=== PATIENT | male | born 2005 | race Caucasian/White ===

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

== ENCOUNTER 2023-04-28 09:23 | Emergency (ER) | payer OTHER, SELFPAY ==
[2023-04-28 09:31] VITALS: BP 128/69; PULSE 101; RESP 16; TEMP 36.7; O2SAT 100
--- NOTE | 2023-04-28 09:43 | ED.URI ---
HPI - URI/Sore Throat General Chief Complaint: Upper Respiratory Infection Stated Complaint: Sore Throat/Runny Nose Time Seen by Provider: 04/28/23 09:43 Source: patient Mode of arrival: ambulatory Limitations: no limitations History of Present Illness HPI Narrative: 17-year-old male presents with complaint of fatigue, body aches, cough, chest pain, sore throat, headaches for 4 days. Patient seen at another urgent care 2 days ago and states all test were negative and given doxycycline. He states not feeling any better. Denies nausea vomiting diarrhea. No chest pain or shortness of breath. All systems reviewed and negative except as noted above. Related Data Home Medications Medication Instructions Recorded Confirmed doxycycline hyclate 100 mg capsule mg 04/28/23 Allergies Allergy/AdvReac Type Severity Reaction Status Date / Time amoxicillin Allergy Severe Throat Verified 12/20/22 19:11 swelling and rash sulfamethoxazole Allergy Unknown convulsions Verified 12/20/22 19:11 trimethoprim Allergy Unknown convulsions Verified 12/20/22 19:11 Review of Systems Review of Systems: CONSTITUTIONAL: Reports fever, chills, or sweats. EYES: Denies visual changes, redness, or discharge. ENT: Reports rhinorrhea, congestion, sore throat. Denies otalgia. CARDIOVASCULAR: Denies chest pain, palpitations, or edema. RESPIRATORY: Reports cough. Denies dyspnea. GASTROINTESTINAL: Denies abdominal pain, nausea, vomiting, or diarrhea. GENITOURINARY: Denies dysuria or hematuria. SKIN: Denies rash or itching. MUSCULOSKELETAL: Denies back pain, joint pain, or myalgia. NEUROLOGIC: Denies headache, numbness, or weakness. PSYCHIATRIC: Denies anxiety or depression. All other systems reviewed are negative, except as documented in HPI. PMFSH Past Medical History Medical History (Updated 04/28/23 @ 09:50 by Suzanne Shepherd NP) Acne Eczema Social History Social History (Updated 04/26/19 @ 11:20 by Polina Fernandez NP) Smoking status: Never smoker Living arrangements: with family Occupation/Education: student Gender identity (if verbalized by the patient): Male Comments At time of signature, agree with nursing past medical, surgical, social and family history. There is no relevant family history pertinent to the presenting complaint. Exam Narrative: GENERAL: This is a well-nourished, well-developed patient, in no apparent distress. HEAD: normocephalic, atraumatic. EYES: PERRL. Sclera clear/white. Vision is grossly intact. EARS: External ears normal, auditory canals clear and without drainage, TMs normal without perforation. Hearing grossly intact. NOSE: External nose normal with clear nasal drainage, mild congestion. THROAT: Mucous membranes moist, posterior pharynx clear. NECK: Neck supple, non-tender without lymphadenopathy, masses or thyromegaly. CARDIOVASCULAR: Regular rate and rhythm without murmurs, gallops, or rubs. RESPIRATORY: Clear to auscultation. Breath sounds equal bilaterally. No wheezes, rales, or rhonchi. SKIN: warm, Dry, intact with no suspicious lesions or rash, good texture and turgor. NEURO: awake, alert, and oriented to person, place and time. There were no obvious focal neurologic abnormalities. EXTREMITIES: No joint tenderness, effusion, or edema noted. Course Course Level of Care: Express Care Visit Vital Signs Vital signs: Vital Signs Temperature 36.7 C 04/28/23 09:31 Pulse Rate 101 H 04/28/23 09:31 Respiratory Rate 16 04/28/23 09:31 Blood Pressure 128/69 04/28/23 09:31 Pulse Oximetry 100 04/28/23 09:31 Oxygen Delivery Room Air 04/28/23 09:31 Temperature 36.7 C 04/28/23 09:31 Pulse Rate 101 H 04/28/23 09:31 Respiratory Rate 16 04/28/23 09:31 Blood Pressure 128/69 04/28/23 09:31 Pulse Oximetry 100 04/28/23 09:31 Oxygen Delivery Room Air 04/28/23 09:31 Reviewed MDM - URI/Sore Throat MDM Narrative Medical decisio
== END 2023-04-28 09:54 | disposition home or self-care (01) ==
PROVIDERS: Emergency Provider Nurse Practitioner Family
DX: J10.1 Influenza due to other identified influenza virus with other respiratory manifestations (principal); Z20.822 Contact with and (suspected) exposure to COVID-19
CPT/HCPCS: 87426; 87804; 99213; G0463

== ENCOUNTER 2024-07-28 13:20 | Observation (INO) | payer OTHER, SELFPAY ==
--- NOTE | ~2024-07-28 | CT_ITS ---
EXAMINATION: CT abdomen pelvis w con DATE: 07/28/2024 15:41 INDICATION: RIGHT ABDOMINAL PAIN TECHNIQUE: Computed tomography (CT) of the abdomen and pelvis was performed with 100 mL Omnipaque-350 intravenous contrast. Automated exposure control and iterative reconstruction technique were employe d. The dose-length product was 377.13 mGy-cm. COMPARISON: None. FINDINGS: Lower thorax: Unremarkable Liver: Enlarged. Periportal edema. Enlarged lymph node at the enriqueta hepatis. Biliary/Gallbladder: Cholelithiasis. No inflammatory changes No bile duct dilation. Pancreas: No mass or duct dilation. Spleen: Enlarged. Adrenals:No mass. Kidneys: No suspicious mass, obstructing stone, or hydronephrosis. GI tract: Mild distal esophageal and gastric wall edema. No small or large bowel dilation. Normal naseem endix. Mesentery/Peritoneum: No ascites, mass, or free air. Retroperitoneum: No mass. Pelvis: Pelvic organs are within normal limits. Soft Tissues: Soft tissues and body wall unremarkable. Bones: No acute osseous finding. IMPRESSION: Mild esophagitis/gastritis. Hepatosplenomegaly. Periportal edema. Enriqueta hepatis lymphadenopathy. Consider acute hepatitis in the differential. Correlate with liver labs and any history of trauma, or progressive fluid resuscitation . Other causes of portal edema such as CHF, cholangitis and pyelonephritis are considered less likely in a patient of this age and given the lack of associated CT abnormalities. Cholelithiasis, without CT evidence of cholecystitis. Reviewed, dictated and finalized at [facility]. IMPRESSION: Mild esophagitis/gastritis. Hepatosplenomegaly. Periportal edema. Enriqueta hepatis lymphadenopathy. Consider a cute hepatitis in the differential. Correlate with liver labs and any history o f trauma, or progressive fluid resuscitation. Other causes of portal edema such as CHF, cholangitis and pyelonephritis are considered less likely in a patient of this age and given the lack of associated CT abnormalities. Cholelithiasis, without CT evidence of cholecystitis.
--- NOTE | ~2024-07-28 | US_ITS ---
EXAMINATION: US abdomen limited DATE: 07/28/2024 18:44 INDICATION: GALLBLADDER PATHOLOGY TECHNIQUE: Multiple grayscale and Doppler ultrasound images of limited portions of the abdomen were o btained. COMPARISON: CT abdomen and pelvis, same date. FINDINGS: The visualized portions of the pancreas are normal. The liver is enlarged with normal echog enicity and echotexture. Periportal hyperechogenicity. No surface nodularity. Normal hepatopetal flow in the main portal vein. Multiple mobile echogenic intraluminal foci. Gallbladder wall measures 3 mm . No pericholecystic fluid. The common bile duct measures 5 mm. There was no sonographic Acharya sign, however this may be confounded by concurrent pain medications. IMPRESSION: Hepatomegaly. Cholelithiasis. Mild gallbladder wall thickening. No pericholecystic fluid or common bile duct dilati on. Negative sonographic Acharya sign although this may be confounded by current pain medication use. Periportal hyperechogenicity, as can be seen with cholecystitis and inflammatory bowel disease. No CT findings of pneumobilia or recurrent pyogenic cholangitis which can also cause this finding. Conside r schistosomiasis if there has been travel to endemic regions. Reviewed, dictated and finalized at location K. IMPRESSION: Hepatomegaly. Cholelithiasis. Mild gallbladder wall thickening. No pericholecystic fluid or c ommon bile duct dilation. Negative sonographic Acharya sign although this may be confounded by current pain medication use. Periportal hyperechogenicity, as can be seen with cholecystitis and inflammator y bowel disease. No CT findings of pneumobilia or recurrent pyogenic cholangiti s which can also cause this finding. Consider schistosomiasis if there has been travel to endemic regions.
--- OUTSIDE RECORDS SUMMARY | 2024-07-28 13:22 | XMS_ITS | Clinical Summary ---
Author Organization [facility] [employer] Address [address] [place] [address] Care Team Providers Care Loom Technician Name Role Phone Jackson Boothe MD Primary Care Provider [phone] Source Comments [facility] [employer],non-owned Affiliates and Associated Physician Practices is amultiple site organization consisting of ambulatory clinics and hospital sitesin [place], [place], [place] and [place]. This disclosure is being madepursuant to the Care Everywhere program and may not contain all information available regarding this patient. Last updated 17.[facility] [employer] Allergies No known active allergies Medications * Be aware that medications may not be up to date on this document. Alwaysverify current medications with the patient. multivitamin daily (THERAGRAN) tablet Take 1 Tab by mouth daily with food. 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 Gender Identity Not on file Sexual Orientation Not on file Plan of Treatment Health Maintenance Due Date Last Done Comments HIV SCREENING 12/21/2018 HPV VACCINE (1 - Male 3-dose series) 12/21/2018 MENINGOCOCCAL (Group B) VACC INE SHARED DECISION-MAKING (1 of 2 - Standard) 2019 HEPATITIS C SCREENING 12/17/2021 DTAP/TDAP/TD VACCINES (1 - Tdap) 12/21/2022 HEPATITIS B VACCINE (1 of 3 - 19+ 3-dose series) 12/21/2022 COVID-19 VACCINE (1 - 2023-2 5 season) 2023 DEPRESSION SCREENING 02/21/2024 INFLUENZA VACCINE (Season Ended) 2024 ZOSTER VACCINE (1 of 2) 12/21/2053 HIB VACCINE Aged Out No longer eligi ble based on patient's age to complete this topic MENINGOCOCCAL GROUPS A/C/Y/W VACCINE Aged Out No longer eligible b ased on patient's age to complete this topic PNEUMOCOCCAL VACCINE Aged Out No long er eligible based on patient's age to complete this topic Insurance MEDICAID - [place] Care Teams Loom Technician Relationship Specialty Start Date End Date Jackson Boothe MD PCP - General Pediatrics 11/09/12
--- OUTSIDE RECORDS SUMMARY | 2024-07-28 13:22 | XMS_ITS | Referral Summary ---
Author Organization [facility] Address [address] [place] [address] Care Team Providers Care Detacher Name Role Phone No, Physician Primary Care Provider [phone] Allergies Active Allergy Reactions Criticality Noted Date Comments Penicillins Anaphylaxis High 10/23/2018 Throat swollen, hives Sulfamethoxazole-Trimethop rim Anaphylaxis High 10/23/2018 Red eyes, swollen, convulsing Medications ondansetron ODT (ZOFRAN-ODT) 8 mg disintegrating tablet Take 1 tablet (8 mg total) by mouth every 8 (eight) hours as needed for nausea or vomiting 30 tablet 3 Active HYDROcodone-acetam inophen (NORCO) 5-325 mg per tabletIndications: Pain Take 1 tablet by mouth every 6 (six) hours as needed for pain for up to 12 doses 12 tablet 4 Active silver sulfadiazine (SILVADENE, SSD) 1 % cream Apply topically 3 (three) times a day as needed for wound care 50 g 4 Active naproxen (NAPROSYN) 500 mg tablet Take 1 tablet (500 mg total) by mouth 2 (two) times a day with meals 30 tablet 4 Active methocarbamoL (ROBAXIN) 500 mg tablet Take 1 tablet (500 mg total) by mouth 2 (two) times a day 20 tablet 4 Active cetirizine (ZyrTEC) 10 mg tablet Take 1 tablet (10 mg total) by mouth daily 30 tablet 4 Active hydrOXYzine (ATARAX) 25 mg tablet Take 1 tablet (25 mg total) by mouth every 6 (six) hours for 20 doses 20 tablet 4 Active ondansetron (ZOFRAN) 4 mg tablet Take 1 tablet (4 mg total) by mouth every 6 (six) hours 12 tablet 4 Active diphenhydrAMINE 25 mg capsule Take 1 tablet/capsul e (25 mg total) by mouth every 6 (six) hours as needed for itching 20 capsule 4 Active diphenhydramine-zi nc acetate (BENADRYL) cream Apply topically 3 (three) times a day as needed for itching 28.3 g 4 Active hydrocortisone-pra moxine (PRAMCORT) 1-1 % rectal creamIndications:H emorrhoids,Pruritu s Ani Insert into the rectum 2 (two) times a day 30 g 4 Active Active Problems Problem Noted Date Diagnosed Date Calculus of gallbladder with out cholecystitis without obstruction 02/07/2023 Resolved Problems Problem Noted Date Diagnosed Date Resolved Date Calculus of gallbladder and bile duct 02/07/2023 02/07/2023 Immunizations Immunization Administration Dates Next Due Tdap 08/28/2023 Social History Tobacco Use Types Packs/Day Years Used Date Smoking Tobacco: Never Smokeless Tobacco: Never Tobacco Cessation:Counseling Given: Not Answered Alcohol Use Standard Drinks/Week Comments Never 0 (1 standard drink = 0.6 oz pur e alcohol) Personal Safety Answer Date Recorded Have you ever been in or are you currently in a harmful physical or emotional relationship or is someone making you feel afraid or unsafe? Denies 01/31/2024 Sex and Gender Information Value Date Recorded Sex Assigned at Not on file Legal Sex Male 3:34 PM MILK PASTEURIZER Gender Identity Not on file Sexual Orientation Not on file Last Filed Vital Signs Vital Sign Reading Time Taken Comments Blood Pressure 98/54 02/01/2024 9:15 AM MILK PASTEURIZER Pulse 91 02/01/2024 9:15 AM MILK PASTEURIZER Temperature 36.7 C (98.1 F) 01/31/2024 11:21 PM MILK PASTEURIZER Respiratory Rate 16 02/01/2024 9:15 AM MILK PASTEURIZER Oxygen Saturation 99% 02/01/2024 9:15 AM MILK PASTEURIZER Inhaled Oxygen Concentration - - Weight 99.8 kg (220 lb) 01/30/2024 4:22 PM MILK PASTEURIZER Height 182.9 cm (6') 01/30/2024 4:22 PM MILK PASTEURIZER Body Mass Index 29.84 01/30/2024 4:22 PM MILK PASTEURIZER Plan of Treatment Not on file Insurance [employer] Care Teams Detacher Relationship Specialty Start Date End Date No, Physician PCP - General 04/10/22
--- OUTSIDE RECORDS SUMMARY | 2024-07-28 13:22 | XMS_ITS | Clinical Summary ---
Author Organization [facility] Address [address] [place] [id number] Care Team Providers Care Coconut Jelly Roller Name Role Phone No, Physician Primary Care Provider [phone] Allergies Active Allergy Reactions Criticality Noted Date [...] Immunization Administration Dates Next Due Tdap 08/28/2023 Family History Medical History Relation Name Comments Arthritis Mother Atrial fibrillation Mother Diabetes Mother Hypertension Mother Relation Name Status Comments Mother Alive Social History Tobacco Use Types Packs/Day Years [...] on file Legal Sex Male 3:34 PM GOVERNMENT DOCUMENTS LIBRARIAN Gender Identity Not on file Sexual Orientation Not on file Obstetrics History Last Filed Vital Signs Vital Sign Reading Time Taken Comments Blood Pressure 98/54 02/01/2024 9:15 AM GOVERNMENT DOCUMENTS LIBRARIAN Pulse 91 02/01/2024 9:15 AM GOVERNMENT DOCUMENTS LIBRARIAN Temperature 36.7 C (98.1 F) 01/31/2024 11:21 PM GOVERNMENT DOCUMENTS LIBRARIAN Respiratory Rate 16 02/01/2024 9:15 AM GOVERNMENT DOCUMENTS LIBRARIAN Oxygen Saturation 99% 02/01/2024 9:15 AM GOVERNMENT DOCUMENTS LIBRARIAN Inhaled Oxygen Concentration - - Weight 99.8 kg (220 lb) 01/30/2024 4:22 PM GOVERNMENT DOCUMENTS LIBRARIAN Height 182.9 cm (6') 01/30/2024 4:22 PM GOVERNMENT DOCUMENTS LIBRARIAN Body Mass Index 29.84 01/30/2024 4:22 PM GOVERNMENT DOCUMENTS LIBRARIAN Plan of Treatment Health Maintenance Due Date Last Done Comments Depression Screening 2003 Hepatitis C Screening 2003 HPV Vaccines (1 - Male 3-dose series) 12/21/2018 Meningococcal B Vaccine (1 of 2 - Standard) 2019 Regular Well Visit/Exam 18-64 12/21/2021 Influenza Vaccine (Season Ended) 2024 12/26/2017, 2016, 12/18/2013, Additional history exists DTaP/Tdap/Td Vaccine (8 - Td or Tdap) 08/27/2033 08/28/2023, 12/26/2013, 12/27/2007, Additional history exists Hepatitis B Screening Completed 06/23/2004 , 05/04/2004, 02/23/2004, Additional history exists Pneumococcal vaccine <65 Completed 007, 06/23/2004, 05/04/2004, Additional history exists Varicella Vaccines Completed 12/27/2007, 06/30/2005 Meningococcal Vaccine Aged Out 07/30/2015 No edu crystal eligible based on patient's age to complete this topic Insurance [facility] Care Teams Coconut Jelly Roller Relationship Specialty Start Date End Date No, Physician PCP - General 04/10/22
--- OUTSIDE RECORDS SUMMARY | 2024-07-28 13:22 | XMS_ITS | Clinical Summary ---
Author Organization [facility] Address [address] [place] [address] Phone Care Team Providers Care Lead Front Desk Agent Name Role Phone Provider, None Primary Care Provider Unavailabl e Allergies Active Allergy Reactions Criticality Noted Date Comments Sulfamethoxazole-Trimethop rim Anaphylaxis 10/23/2018 Red eyes, swollen, convulsing Penicillins Anaphylaxis 10/23/2018 Throat swollen, hives Medications predniSONE (DELTASONE) 20 MG Tablet Take 2 Tablets by mouth daily for 5 days. 10 Tablet 06/23/2024 06/29/19 25 Active Problems Problem Noted Date Diagnosed Date Paronychia of toe Overview (11/18/2014): Left toes Encounters Date Type Department Care Team Description 06/23/2024 7:52 AM CDT - 06/23/2024 8:33 AM CDT Emergency [facility] Emergency [address] [place] [address] Anson Agrawal MD Contact dermatitis, unspecified contact dermatitis type, unspecified trigger Discharge Disposition: Discharged to home or Selfcare 06/23/2024 Travel 06/16/2024 8:35 AM CDT [facility] [address] [place] [address] Leonor Santo, PSYCHIATRIC REGISTERED NURSE, EDUCATION TRAINER Viral upper respiratory tract infection (Primary Dx); Sore throat; Acute cough Discharge Disposition: Discharged to home or Selfcare 06/16/2024 Travel from Last 3 Months Immunizations Immunization Administration Dates Next Due DTAP VACCINE 08/03/2006 DTAP VACCINE, UNSPECIFIED FORMULATION 06/23/2004 ,05/04/2004,02/23/2004 DTP Vaccine 12/27/2007 Hepatitis B Vaccine, Pediatric/adolescent 06/23/2004,05/04/2004,02/23/2004,12/21 Hib Vaccine,unspecified Formulation 08/03/2006 Inactivated Polio Vaccine 06/23/2004,05/04/2004, 02/23/2004 Influenza Vaccine Quadrivalent Nasal 11/08/2012 Influenza Vaccine, Quadrivalent, PF 12/26/2017,1 02/22/2016,12/18/2013 Influenza Vaccine,unspecifie d Formulation 12/27/2007 MMR Vaccine 12/27/2007,06/30/2005 Meningococcal MCV4O 07/30/2015 Pneumococcal Vaccine Peds - 7 Valent ,06/23/2004,05/04/2004,02/22 TDAP Vaccine 12/26/2013 Varicella Vaccine Live 12/27/2007,06/30/2005 Family History Medical History Relation Name Comments Diabetes Mother Relation Name Status Comments Father Other Mother Alive Social History Tobacco Use Types Packs/Day Years Used Date Smoking Tobacco: Never Smokeless Tobacco: Never Tobacco Cessation:Counseling Given: Not Answered Alcohol Use Standard Drinks/Week Comments No 0 (1 standard drink = 0.6 oz pur e alcohol) Sexually Active Control Partners Comments Not Currently Sex and Gender Information Value Date Recorded Sex Assigned at Male 02/12/2023 12:40 AM EIGHT SECTION BLOWER Legal Sex Male 9:38 PM CDT Gender Identity Male 02/12/2023 12:40 AM EIGHT SECTION BLOWER Sexual Orientation Not on file Last Filed Vital Signs Vital Sign Reading Time Taken Comments Blood Pressure 129/75 06/23/2024 7:57 AM CDT Pulse 67 06/23/2024 7:57 AM CDT Temperature 36.2 C (97.2 F) 06/23/2024 7:57 AM CDT Respiratory Rate 16 06/23/2024 7:57 AM CDT Oxygen Saturation 100% 06/23/2024 7:57 AM CDT Inhaled Oxygen Concentration - - Weight 83.9 kg (185 lb) 06/23/2024 7:57 AM CDT Height 182.9 cm (6') 06/23/2024 7:57 AM CDT Body Mass Index 25.09 06/23/2024 7:57 AM CDT Plan of Treatment Health Maintenance Due Date Last Done Comments Hepatitis C Virus (HCV) Screening 2003 Human Papillomavirus (HPV) Immunization (1 - Male 3-dose series) 12/21/2018 Meningococcal B Immunization (1 of 2 - Standard) 2019 SARS-COV-2 Immunization ( - season) 2023 Influenza Immunization (Season Ended) 2024 12/26/2017, 2016, 12/18/2013, Additional history exists DTaP/Tdap/Td Immunization (8 - Td or Tdap) 08/27/2033 08/28/2023, 12/26/2013, 12/27/2007, Additional history exists Respiratory Syncytial Virus (RSV) Immunization (Adult) (1 - 1-dose 75+ series) 12/21/2078 Hepatitis B Immunization Completed , 05/04/2004, 02/23/2004, Additional history exists Polio (IPV) Immunization Discontinued 005, 05/04/2004, 02/23/2004 Pneumococcal Immunization Combined Aged Out 08/03/2006, 06/23/2004, 05/04/2004, Additional history exists No longer eligible based on patient's age to complete this topic Hepatitis A Immunization Discontinued 12/27/2007, 07/21 Measles Mumps Rubella (MMR) Immunization Discontinued 12/27/2007, 06/30/2005 Varicella Immunization Discontinued 12/27/2007, 2005 Meningococcal Immunization (ACWY) Aged Out 07/30/2015 No longer eligible based on patient's age to complete this topic Rotavirus Immunization Aged Out No lo nger eligible based on patient's age to complete this topic Procedures Procedure Name Priority Date/Time Associated Diagnosis Comments POC SARS-COV-2 BY MOLECULAR Routine 06/16/2024 8:38 AM CDT Sore throat Acute cough POC INFLUENZA A AND B BY MOLECULAR Routine 06/16/2024 8:38 AM CDT Sore throat Acute cough POC GROUP A STREP BY MOLECULAR Routine 06/16/2024 8:36 AM CDT Sore throat Acute cough from Last 3 Months Results * POC SARS-COV-2 BY MOLECULAR (06/16/2024 8:38 AM CDT) SARSCOV2 Negative Negative, INVALID PROCEDURE CONTROL Valid 06/16/2024 8:38 AM CDT Leonor Santo APRN, EDUCATION TRAINER POINT OF CARE TEST ING (MANUAL) Final Result * POC INFLUENZA A AND B BY MOLECULAR (06/16/2024 8:38 AM CDT) INFLUENZA A RNA Negative Negative, Invalid INFLUENZA B RNA Negative Negative, Invalid PROCEDURE CONTROL Valid 06/16/2024 8:38 AM CDT Leonor Santo APRN, EDUCATION TRAINER POINT OF CARE TEST ING (MANUAL) Final Result * POC GROUP A STREP BY MOLECULAR (06/16/2024 8:36 AM CDT) STREP A DNA Negative Negative, Invalid PROCEDURE CONTROL Valid 06/16/2024 8:3 6 AM CDT Leonor Santo APRN, EDUCATION TRAINER POINT OF CARE TEST ING (MANUAL) Final Result from Last 3 Months [facility] Care Teams Lead Front Desk Agent Relationship Specialty Start Date End Date Provider, None [place] PCP - General 01/12/21
[2024-07-28 13:23] VITALS: BP 136/66; PULSE 68; RESP 16; TEMP 36.4; O2SAT 100
--- OUTSIDE RECORDS SUMMARY | 2024-07-28 13:23 | XMS_ITS | Clinical Summary ---
Author Organization [facility] [place] Address [address] [place] [address] Care Team Providers Care Newspaper Editor Managing Name Role Phone Unavailable Primary Care Provider Unavailabl e Allergies Active Allergy Reactions Criticality Noted Date Comments Penicillins Anaphylaxis High 10/23/2018 Throat swollen, hives Sulfamethoxazole-Trimethop rim Anaphylaxis High 10/23/2018 Red eyes, swollen, convulsing Medications HYDROcodone-acetam inophen (NORCO) 5-325 mg tabletIndications: Calculus of gallbladder without cholecystitis without obstruction,RUQ abdominal pain Take 1 Tablet by mouth every 4 hours as needed for Pain. Max Daily Amount: 6 Tablets 15 Tablet 3 Active ondansetron (ZOFRAN ODT) 4 mg Tablet, Rapid Dissolve Take 1 Tablet (4 mg) by mouth every 8 hours as needed for Nausea/Emesi s. Dissolve tablet on top of tongue, then swallow with saliva. 10 Tablet 3 Active cetirizine (ZyrTEC) 10 mg tablet Take 10 mg by mouth daily. 4 Active predniSONE (DELTASONE) 20 mg tablet Take 3 Tablets (60 mg) by mouth daily for 3 days, THEN 2 Tablets (40 mg) daily for 3 days, THEN 1 Tablet (20 mg) daily for 3 days, THEN 0.5 Tablets (10 mg) daily for 3 days. 20 Tablet 06/23/2024 11:00 AM CDT 5 07/06/19 25 Active Problems Problem Noted Date Diagnosed Date Biliary colic 03/07/2023 Elevated bilirubin 03/07/2023 Abdominal pain 01/20/2023 Cholelithiasis 01/20/2023 Unconjugated benign bilirubinemia 01/20/2023 Obesity (BMI 35.0-39.9 without comorbidity) 02/2022 Anal fissure 01/19/2023 Nonvenomous bug bite of shou lder or upper arm, infected, right, initial encounter 10/30/2022 Sebaceous cyst 10/19/2022 Encounters Date Type Department Care Team Description 07/23/2024 External Device Data [facility]STRACTION Provider, Abstract 07/23/2024 External Device Data [facility] Provider, Abstract 07/23/2024 External Device Data [facility] Provider, Abstract 06/25/2024 External Device Data [facility] [place] Provider, Abstract 06/25/2024 External Device Data [facility] [place] Provider, Abstract 06/25/2024 External Device Data [facility] [place]STRA[facility] Provider, Abstract 06/23/2024 9:30 AM CDT - 06/23/2024 10:31 AM CDT Emergency [facility] Emergency Department [address] [place] [phone] Froy Hdez MD Rash (Primary Dx) Discharge Disposition: Home or Self Care 06/23/2024 Travel 06/04/2024 External Device Data [facility] ABSTRACTION Provider, Abstract from Last 3 Months Family History Medical History Relation Name Comments Unknown Father Atrial fibrillation Maternal Grandmother Heart Failure Maternal Grandmother Liver Disease Mother Rheumatoid Arthritis Mother Valvular Heart Disease Mother Relation Name Status Comments Father Maternal Grandmother Mother Social History Tobacco Use Types Packs/Day Years Used Date Smoking Tobacco: Never Smokeless Tobacco: Never Tobacco Cessation:Counseling Given: Not Answered Alcohol Use Standard Drinks/Week Comments Never 0 (1 standard drink = 0.6 oz pur e alcohol) Feeling Safe Answer Date Recorded Are you in a relationship wi th someone who hurts you emotionally and/or physically? No 06/23/2024 Sex and Gender Information Value Date Recorded Sex Assigned at Not on file Legal Sex Male 10:49 AM CDT Gender Identity Not on file Sexual Orientation Not on file Last Filed Vital Signs Vital Sign Reading Time Taken Comments Blood Pressure 120/74 06/23/2024 9:29 AM CDT Pulse 59 06/23/2024 9:29 AM CDT Temperature 36.6 C (97.9 F) 06/23/2024 9:29 AM CDT Respiratory Rate 15 06/23/2024 9:29 AM CDT Oxygen Saturation 100% 06/23/2024 9:29 AM CDT Inhaled Oxygen Concentration - - Weight 83.9 kg (185 lb) 06/23/2024 9:29 AM CDT Height 182.9 cm (6') 06/23/2024 9:29 AM CDT Body Mass Index 25.09 06/23/2024 9:29 AM CDT Plan of Treatment Upcoming Encounters Date Type Department Care Team (Late st Contact Info) Description 08/06/2024 9:00 AM CDT Office Visit [facility] at [facility] [employer] [place] [address] [place] [address] Trisha Edouard MD [address] [place] [address] Health Maintenance Due Date Last Done Comments CHLAMYDIA SCREENING (ANNUAL) 11-24 YEARS 12/21/2014 HPV VACCINES (1 - Male 3-dos e series) 12/21/2018 INFLUENZA VACCINE (#1) 2023 8, 2016, 12/18/2013, Additional history exists DTAP/TDAP/TD VACCINES (5 - T d or Tdap) 08/27/2033 08/28/2023, 12/26/2013, 12/27/2007, Additional history exists HEPATITIS B VACCINES Completed 06/23/2004, 05/04/2004, 02/23/2004, Additional history exists Insurance [employer] OPEN ACCESS Advance Directives For more information, please contact: [phone] * Full Code (Latest Code Status on File) Date Activated Date Inactivated Comments 01/20/2023 8:28 AM 01/20/2023 2:36 PM * Default Full Code - Needs Discussion Date Activated Date Inactivated Comments 01/19/2023 8:30 PM 01/20/2023 8:28 AM * Default Full Code - Needs Discussion Date Activated Date Inactivated Comments 10/19/2022 7:50 AM 10/19/2022 2:57 PM
--- NOTE | 2024-07-28 14:41 | ED.ABDPAIN ---
HPI - Abdominal Pain General Chief Complaint: Abdominal Pain Stated Complaint: N/V Time Seen by Provider: 07/28/24 14:38 Source: patient Mode of arrival: ambulatory Limitations: no limitations History of Present Illness HPI narrative: 18 YEARS OLD WHITE MALE CAME TO THE ED WITH RIGHT ABDOMINAL PAIN RADIATING TO RIGHT FLANK, STARTED FEW HOURS ASSOCIATED WITH NAUSEA. SHARP, STABBING, WORSE WITH CERTAIN MOVEMENT AND POSITION, PATIENT HAS BEEN ON ZOFRAN FOR THE LAST 8 MONTHS BECAUSE OF CHOLECYSTITIS, PATIENT IS TELLING ME THAT HIS SURGEON AT [facility] DECLINED DOING SURGERY BECAUSE PATIENT DID NOT HAVE HIS COVID VACCINE. PATIENT DENIES FEVER OR CHILLS OR VOMITING OR DIARRHEA OR CONSTIPATION OR URINARY SYMPTOMS. NO HISTORY OF ABDOMINAL SURGERY. Related Data Home Medications ?Medication ?Instructions ?Recorded ?Confirmed ?Last Taken ?Type doxycycline hyclate 100 mg capsule mg 04/28/23 Unknown History Allergies Allergy/AdvReac Type Severity Reaction Status Date / Time amoxicillin Allergy Severe Throat Verified 07/28/24 14:40 swelling and rash sulfamethoxazole Allergy Unknown convulsions Verified 07/28/24 14:40 trimethoprim Allergy Unknown convulsions Verified 07/28/24 14:40 Review of Systems Review of Systems: All systems reviewed & are unremarkable except as noted in HPI and below PMFSH Past Medical History Medical History Eczema Acne Social History Social History Smoking status: Never smoker Living arrangements: with family Occupation/Education: student Gender identity (if verbalized by the patient): Male Exam Narrative: GENERAL APPEARANCE: WELL-DEVELOPED, WELL-NOURISHED SKIN: NORMAL COLOR HEAD: NORMOCEPHALIC, NONTRAUMATIC EYES: CLEAR CONJUNCTIVA ENT: OROPHARYNX NORMAL, EARS NORMAL, NOSE NORMAL NECK: SUPPLE, NONTENDER CHEST AND RESPIRATORY: AIRWAY PATENT, NO RESPIRATORY DISTRESS, NO ACCESSORY MUSCLE USE HEART: REGULAR RATE/RHYTHM ABDOMEN: SOFT, CVA TENDERNESS RIGHT LOWER QUADRANT AND RIGHT UPPER QUADRANT, POSITIVE ACHARYA SIGN, POSITIVE GUARDING, NO REBOUND, NO ORGANOMEGALY, QUIET BOWEL SOUNDS VASCULAR: NORMAL PERIPHERAL PULSES, NORMAL CAPILLARY REFILL. MUSCULOSKELETAL: NORMAL RANGE OF MOTION, NONTENDER BACK NEUROLOGIC: ALERT AND ORIENTED ?3, INTERLOCKING TOWER OPERATOR IS NORMAL TESTED, NO GROSS MOTOR DEFICIT Course Consultations Consultation #1: DR HARTMAN, ADMIT TO HOSPITALIST Date: 07/28/24 Vital Signs Vital signs: Vital Signs Temperature 36.4 C 07/28/24 13:23 Pulse Rate 68 07/28/24 13:23 Respiratory Rate 16 07/28/24 13:23 Blood Pressure 136/66 07/28/24 13:23 Pulse Oximetry 100 07/28/24 13:23 Oxygen Delivery Room Air 07/28/24 13:23 Temperature 36.4 C 07/28/24 13:23 Pulse Rate 76 07/28/24 15:00 Respiratory Rate 18 07/28/24 15:00 Blood Pressure 128/79 07/28/24 15:00 Pulse Oximetry 100 07/28/24 15:00 Oxygen Delivery Room Air 07/28/24 13:23 MDM - Abdominal Pain MDM Narrative Medical decision making narrative: PATIENT CAME WITH RIGHT ABDOMINAL PAIN VITAL SIGNS ARE STABLE DIFFERENTIAL DIAGNOSIS INCLUDE CHOLECYSTITIS, APPENDICITIS, COLITIS, DIVERTICULITIS, CONSTIPATION, URINARY TRACT INFECTION. BLOOD WORKUP TODAY INCLUDES CBC, CMP, LIPASE SHOWED TOTAL BILIRUBIN 2.7 OTHERWISE INSIGNIFICANT ABNORMALITIES URINALYSIS SHOWED 1+ KETONES OTHERWISE INSIGNIFICANT CT ABDOMEN AND PELVIS WITH IV CONTRAST SHOWED HEPATOMEGALY, PERIPORTAL EDEMA, ROBERTH HEPATIS LYMPHADENOPATHY, CHOLELITHIASIS DR. Irizarry RECOMMENDS TO ADMIT PATIENT TO THE HOSPITALIST FOR POSSIBLE ABDOMINAL MRI IN THE MORNING Admit to hospitalist Diagnosis abdominal pain of unknown etiology Differential Diagnosis Differential diagnosis: Likely other Medical Records Attestation: I reviewed the patient's medical records. Lab Data Attestation: I reviewed the patient's lab results. 07/28/24 14:48 07/28/24 14:48 Labs: Lab Results 07/28/24 07/28/24 Range/Units 14:48 15:19 WBC 6.8 (4.5-10.0) K/mm3 RBC 5.02 (4.6-6.20) M/mm3 Hgb 15.0 (14.0-18.0) g/dL Hct 44.0 (42.0-52.0) % MCV 87.6 (80-100) fl MCH 29.9 (26-34) pg MCHC 34.1 (32-36) g/dl RDW 12.5 (11.5-14.5) % Plt Count 195 (150-375) k/mm3 MPV 8.0 (7.4-10.4) fl Immature Gran % (Auto) 0.3 (0-0.5) % Neut % (Auto) 68.1 (45.5-73.1) % Lymph % (Auto) 22.4 (18.3-44.2) % [place] % (Auto) 8.4 (2.6-8.5) % Eos % (Auto) 0.4 (0-4.4) % Baso % (Auto) 0.4 (0.2-1.2) % Lymph # (Auto) 1.51 (0.9-3.2) K/mm3 [place] # (Auto) 0.6 (0.1-0.6) K/mm3 Eos # (Auto) 0.0 (0-0.3) K/mm3 Baso # (Auto) 0.0 (0.0-0.1) K/mm3 Abs Immat Gran (auto) 0.02 (0.00-0.031) K/mm3 Absolute Neuts (auto) 4.6 (1.3-6.7) K/mm3 Absolute Nucleated RBC 0.000 (0.0-0.012) K/mm3 Nucleated RBC % 0.0 (0.0-0.2) % Sodium 139 (137-145) mmol/L Potassium 3.8 (3.4-5.0) mmol/L Chloride 105 (98-107) mmol/L Carbon Dioxide 28 (22-30) mmol/L Anion Gap 6 (4-12) mmol/L BUN 11 (9-20) mg/dL Creatinine 0.78 (0.7-1.3) mg/dL Estim Creat Clear Calc 144 ml/min Estimated GFR > 60 (59 - ) Glucose 102 (65-110) mg/dL Calcium 9.7 (8.4-10.2) mg/dL Total Bilirubin 2.7 H (0.2-1.3) mg/dL AST 21 (17-59) U/L ALT 21 (6-50) U/L Alkaline Phosphatase 35 L (38-126) U/L Total Protein 7.4 (6.3-8.2) g/dL Albumin 4.4 (3.5-5.1) g/dL Lipase 97 (23-300) U/L Urine Color Yellow (Yellow) Urine Appearance Clear (Clear) Urine pH 6.5 (5.0-9.0) Ur Specific [place] 1.021 (1.001-1.035) Urine Protein Negative (Negative) mg/dL Urine Glucose (UA) Negative (Negative) mg/dL Urine Ketones 1+ H (Negative) mg/dL Ur Blood (Man) Negative (Negative) Urine Nitrate Negative (Negative) Urine Bilirubin Negative (Negative) Urine Urobilinogen 1.0 (<2.0) mg/dL Leukocyte Esterase Rfl Negative (Negative) DIETER/UL Imaging Data Radiologist's impression: ITS Impressions Abdomen/Pelvis CT 07/28/24 16:16 IMPRESSION: Mild esophagitis/gastritis. Hepatosplenomegaly. Periportal edema. Roberth hepatis lymphadenopathy. Consider acute hepatitis in the differential. Correlate with liver labs and any history of trauma, or progressive fluid resuscitation. Other causes of portal edema such as CHF, cholangitis and pyelonephritis are considered less likely in a patient of this age and given the lack of associated CT abnormalities. Cholelithiasis, without CT evidence of cholecystitis. Abdomen Ultrasound 07/28/24 19:32 IMPRESSION: Hepatomegaly. Cholelithiasis. Mild gallbladder wall thickening. No pericholecystic fluid or common bile duct dilation. Negative sonographic Acharya sign although this may be confounded by current pain medication use. Periportal hyperechogenicity, as can be seen with cholecystitis and inflammatory bowel disease. No CT findings of pneumobilia or recurrent pyogenic cholangitis which can also cause this finding. Consider schistosomiasis if there has been travel to endemic regions. Critical Care Time Critical Care Time Critical Care Time: No Discharge Plan Discharge Clinical Impression: Abdominal pain Patient Disposition: Still a Patient Condition: Stable Patient Language: Czech Prescriptions: No Action doxycycline hyclate 100 mg capsule Follow-up/Referrals: UNKNOWN,DOCTOR [Non-Staff] -
--- OUTSIDE RECORDS SUMMARY | 2024-07-28 14:52 | XMS_ITS | Clinical Summary ---
Author Organization [facility] Address [address] [place] [address] Phone Care Team Providers Care Student Finance Advisor Name Role Phone Provider, None Primary Care [...] - 06/23/2024 8:33 AM CDT Emergency [facility] Emergency [address] [place] [address] Anson Agrawal MD Contact dermatitis, unspecified contact dermatitis type, unspecified trigger Discharge Disposition: Discharged to home or Selfcare 06/23/2024 Travel 06/16/2024 8:35 AM CDT [facility] [place] [address] [place] [address] Leonor Santo, PRODUCT MARKETING ENGINEER, SALES REPRESENTATIVE BUSINESS COURSES Viral upper respiratory tract infection (Primary Dx); [...] Sex Assigned at Male 02/12/2023 12:40 AM VIDEO PRODUCTION ASSISTANT Legal Sex Male 9:38 PM CDT Gender Identity Male 02/12/2023 12:40 AM VIDEO PRODUCTION ASSISTANT Sexual Orientation Not on file Last Filed [...] 06/16/2024 8:38 AM CDT Leonor Santo APRN, SALES REPRESENTATIVE BUSINESS COURSES POINT OF CARE TEST ING (MANUAL) Final Result * POC INFLUENZA A AND B BY MOLECULAR (06/16/2024 8:38 AM CDT) INFLUENZA A RNA Negative Negative, Invalid INFLUENZA B RNA Negative Negative, Invalid PROCEDURE CONTROL Valid 06/16/2024 8:38 AM CDT Leonor Santo APRN, SALES REPRESENTATIVE BUSINESS COURSES POINT OF CARE TEST ING (MANUAL) Final Result * POC GROUP A STREP BY MOLECULAR (06/16/2024 8:36 AM CDT) STREP A DNA Negative Negative, Invalid PROCEDURE CONTROL Valid 06/16/2024 8:3 6 AM CDT Leonor Santo APRN, SALES REPRESENTATIVE BUSINESS COURSES POINT OF CARE TEST ING (MANUAL) Final Result from Last [facility] Mon[facility] Care Teams Student Finance Advisor Relationship Specialty Start Date End Date Provider, None [place] PCP - General 01/12/21
--- OUTSIDE RECORDS SUMMARY | 2024-07-28 14:52 | XMS_ITS | Clinical Summary ---
Author Organization [facility] Address [address] [place] [id number] Care Team Providers Care Computer Graphic Artist Name Role Phone No, Physician Primary Care Provider [phone] Allergies Active Allergy Reactions Criticality Noted Date [...] on file Legal Sex Male 3:34 PM HITCH TECHNICIAN Gender Identity Not on file Sexual Orientation Not on file Obstetrics History Last Filed Vital Signs Vital Sign Reading Time Taken Comments Blood Pressure 98/54 02/01/2024 9:15 AM HITCH TECHNICIAN Pulse 91 02/01/2024 9:15 AM HITCH TECHNICIAN Temperature 36.7 C (98.1 F) 01/31/2024 11:21 PM HITCH TECHNICIAN Respiratory Rate 16 02/01/2024 9:15 AM HITCH TECHNICIAN Oxygen Saturation 99% 02/01/2024 9:15 AM HITCH TECHNICIAN Inhaled Oxygen Concentration - - Weight 99.8 kg (220 lb) 01/30/2024 4:22 PM HITCH TECHNICIAN Height 182.9 cm (6') 01/30/2024 4:22 PM HITCH TECHNICIAN Body Mass Index 29.84 01/30/2024 4:22 PM HITCH TECHNICIAN Plan of Treatment Health Maintenance Due Date [...] to complete this topic Insurance [employer] [facility] Care Teams Computer Graphic Artist Relationship Specialty Start Date End Date No, Physician PCP - General 04/10/22
--- OUTSIDE RECORDS SUMMARY | 2024-07-28 14:52 | XMS_ITS | Referral Summary ---
Author Organization [facility] Address [address] [place] [address] Care Team Providers Care Commercial Artist Lettering Name Role Phone No, Physician Primary Care Provider [phone] Allergies Active Allergy Reactions Criticality Noted Date [...] on file Legal Sex Male 3:34 PM OPTICAL ENGINEERING TECHNICIAN Gender Identity Not on file Sexual Orientation Not on file Last Filed Vital Signs Vital Sign Reading Time Taken Comments Blood Pressure 98/54 02/01/2024 9:15 AM OPTICAL ENGINEERING TECHNICIAN Pulse 91 02/01/2024 9:15 AM OPTICAL ENGINEERING TECHNICIAN Temperature 36.7 C (98.1 F) 01/31/2024 11:21 PM OPTICAL ENGINEERING TECHNICIAN Respiratory Rate 16 02/01/2024 9:15 AM OPTICAL ENGINEERING TECHNICIAN Oxygen Saturation 99% 02/01/2024 9:15 AM OPTICAL ENGINEERING TECHNICIAN Inhaled Oxygen Concentration - - Weight 99.8 kg (220 lb) 01/30/2024 4:22 PM OPTICAL ENGINEERING TECHNICIAN Height 182.9 cm (6') 01/30/2024 4:22 PM OPTICAL ENGINEERING TECHNICIAN Body Mass Index 29.84 01/30/2024 4:22 PM OPTICAL ENGINEERING TECHNICIAN Plan of Treatment Not on file Insurance [employer] Care Teams Commercial Artist Lettering Relationship Specialty Start Date End Date No, Physician PCP - General 04/10/22
--- OUTSIDE RECORDS SUMMARY | 2024-07-28 14:52 | XMS_ITS | Clinical Summary ---
Author Organization [facility] Address [address] [place] [address] Care Team Providers Care Stripper And Opaquer Apprentice Name Role Phone Jackson Boothe MD Primary Care Provider [phone] Source Comments [facility],non-owned Affiliates and Associated Physician Practices is amultiple site organization consisting of ambulatory clinics and hospital sitesin [place], [place], [place] and [place]. This disclosure is being madepursuant to the Care Everywhere program and may not contain all information available regarding this patient. 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
--- OUTSIDE RECORDS SUMMARY | 2024-07-28 14:52 | XMS_ITS | Clinical Summary ---
Author Organization [facility] Address [address] [place] [id number] Care Team Providers Care Inbound Call Center Representative Name Role Phone Unavailable Primary Care Provider [...] CDT - 06/23/2024 10:31 AM CDT Emergency [facility] Emergency Department [address] [place] [id number] Froy Hdez MD Rash (Primary Dx) Discharge [...] Description 08/06/2024 9:00 AM CDT Office Visit [facility] [place] [address] [place] [address] Trisha Edouard MD [address] [place] [address] Health Maintenance Due Date Last [...] Advance Directives For more information, please contact: [phone] * Full Code (Latest Code Status on File) Date Activated Date Inactivated Comments 01/20/2023 8:28 AM 01/20/2023 2:36 PM * Default Full Code - Needs Discussion Date Activated Date Inactivated Comments 01/19/2023 8:30 PM 01/20/2023 8:28 AM * Default Full Code - Needs Discussion Date Activated Date Inactivated Comments 10/19/2022 7:50 AM 10/19/2022 2:57 PM
[2024-07-28 14:53] LABS: Basophils Percent Auto 0.4 % (0.2-1.2); Eosinophils Percent Auto 0.4 % (0-4.4); Immature Granulocyte Absolute 0.02 K/mm3 (0.00-0.031); Immature Granulocyte Percent A 0.3 % (0-0.5); Lymphocytes Absolute Auto 1.51 K/mm3 (0.9-3.2); Lymphocytes Percent Auto 22.4 % (18.3-44.2); Mean Corpuscular HGB Conc 34.1 g/dl (32-36); Mean Corpuscular Hemoglobin 29.9 pg (26-34); Mean Corpuscular Volume 87.6 fl (80-100); Monocytes Absolute Auto 0.6 K/mm3 (0.1-0.6); Monocytes Percent Auto 8.4 % (2.6-8.5); Neutrophils Absolute Auto 4.6 K/mm3 (1.3-6.7); Neutrophils Percent Auto 68.1 % (45.5-73.1); Platelet Count Result 195 k/mm3 (150-375); Red Blood Count 5.02 M/mm3 (4.6-6.20); Red Cell Distribution Width 12.5 % (11.5-14.5); White Blood Count 6.8 K/mm3 (4.5-10.0)
[2024-07-28] MEDS: MORPHINE SULFATE (*CRX) 4 MG/ML INJ IV PUSH (14:53)
[2024-07-28] MEDS: SODIUM CHLORIDE 0.9% IV 1,000 ML 999 ML IV CONT (14:53)
[2024-07-28] MEDS: ONDANSETRON INJ 4 MG/2 ML VIAL IV PUSH (14:54)
[2024-07-28 15:00] VITALS: BP 128/79; PULSE 76; RESP 18; O2SAT 100
[2024-07-28 15:04] LABS: Alanine Aminotransferase 21 U/L (6-50); Albumin Level 4.4 g/dL (3.5-5.1); Alkaline Phosphatase 35 U/L (38-126); Anion Gap 6 mmol/L (4-12); Aspartate Amino Transferase 21 U/L (17-59); Bilirubin,Total 2.7 mg/dL (0.2-1.3); Blood Urea Nitrogen 11 mg/dL (9-20); Calcium 9.7 mg/dL (8.4-10.2); Carbon Dioxide 28 mmol/L (22-30); Chloride 105 mmol/L (98-107); Estimated CRCL calculation 144 ml/min; Estimated Glomerular Filt Rate > 60; Glucose 102 mg/dL (65-110); Lipase 97 U/L (23-300); Potassium 3.8 mmol/L (3.4-5.0); Sodium 139 mmol/L (137-145); Total Protein 7.4 g/dL (6.3-8.2)
[2024-07-28 15:31] LABS: Add Urine Microscopic? NO; Appearance Urine Clear (Clear); Bilirubin Urine Negative (Negative); Blood Urine Negative (Negative); Color Urine Yellow (Yellow); Glucose Urine UA Negative (Negative); Ketones Urine 1+ mg/dL (Negative); Leukocyte Esterase Ur Negative LEU/UL (Negative); Nitrate Urine Negative (Negative); Protein Urine Negative (Negative); Specific Grav Ur 1.021 (1.001-1.035); pH Urine 6.5 (5.0-9.0)
[2024-07-28 20:33] VITALS: BP 153/93; PULSE 69; RESP 18; O2SAT 100
--- NOTE | 2024-07-28 20:34 | PC.NURSE ---
patient states his last etoh beverage.
[2024-07-28 20:41] LABS: Hepatitis B Surface Antigen Negative (Negative)
[2024-07-28 20:47] LABS: HAV RESULT Negative (Negative); Hepatitis B Core IgM Result Negative (Negative)
[2024-07-28 20:59] LABS: Hepatitis C Virus Antibody Negative (Negative)
[2024-07-28 21:17] LABS: Monoscreen Negative (Negative); Negative Monotest Control Negative (Negative); Positive Monotest Control Positive (Positive)
--- NOTE | 2024-07-28 21:26 | P.HP_ITS ---
H&P: [facility] History of Present Illness Date/Time: 07/28/24 21:26 Chief Complaint: Right-sided abdominal pain Narrative: He 18-year-old male with a past medical history of cholelithiasis and chronic cholecystitis who presented to the ER with right-sided abdominal pain started this morning. But he reports that the evening before onset of symptoms he had eaten pizza around 23:00. He woke up in the automobile body customizer hours with severe right upper quadrant pain that radiated radiated around his side into the back. Pain was initially sharp and stabbing. After he received pain medications in the ER he reports that the pain is more of an aching sensation. Pain seemed worsen with certain position changes. She he denies any fevers or chills. He has been having some nausea but no vomiting. He has had normal bowel movements. He has never had any abdominal surgeries. He reports that a year ago he was told he needed his gallbladder out but the surgeon at [facility] would not remove his gallbladder because the patient had never been vaccinated against COVID. He denies having history of prior HIDA scan. In the ER CT was performed which demonstrated hepatosplenomegaly periportal edema and lymphadenopathy at the enriqueta S hepatis as well as cholelithiasis. Patient had minimal elevation in his bilirubin and is transaminases were otherwise normal. He denies any recent travel, history of liver disease, easy bruising or bleeding, high risk sexual activity or blood transfusions. He has not had any fevers or chills. He denies any recent weight loss. He has been having somewhat frequent nausea that he has associated with his history of chronic gallbladder issues for which he has been taking Zofran at home. Although cirrhosis is listed under the family medical history per nursing report the patient denied family history of cirrhosis or liver disease at the time of my evaluation. He told nursing staff that an uncle had cirrhosis. He does not know his father's family history. He also denied family history of lymphoma or leukemia. He denies any recent alcohol use and has not drink in 2 or 3 weeks. He will drink anywhere between a couple of drinks once a month up to a pint once a month. Review of Systems 2 Review of Systems: 12 systems were reviewed with pertinent positives and negatives per HPI. Except as documented in the HPI, all other systems were reviewed and are negative. [facility] Past Medical History Medical History (Updated 07/28/24 @ 21:33 by Sharita Chiang DO) Eczema Acne Surgical History Surgical History (Updated 07/29/24 @ 01:21 by Sharita Chiang DO) No history of previous surgery Family History Family History (Updated 07/29/24 @ 01:24 by Sharita Chiang DO) Mother Diabetes mellitus CHF (congestive heart failure) Hypertension COPD (chronic obstructive pulmonary disease) Breast cancer Other Cirrhosis of liver Degenerative disc disease Social History Social History (Updated 07/29/24 @ 01:28 by Sharita Chiang DO) Social History: Patient recently moved back in with his mother. He works in [employer]. He drinks alcohol about once a month and he can drink anywhere from 2-3 drinks up to a pint when he does drink. He has not drink alcohol in 2 or 3 weeks. He smokes cigarettes on the weekends and the the rest of time he vapes. He reports that he vapes almost constantly. He started vaping at age 16. He denies illicit substance use. Code status: Full code Surrogate decision maker: Mother Smoking status: Current every day smoker Tobacco type: cigarettes and e-cigarettes/vaping Alcohol intake: current Drinks per week: 1 Substance use: current Substance use type: marijuana Last use: 07/27/24 Do You Feel Safe in your Home?: Yes Lack of Transportation: No Lack of Food: Never True Current Housing: I Have Housing Concerned About Future Housing: No Difficulty Paying Gas/Electric Bills: No Difficulty Paying for Meds: No Currently Unemployed: No Education: High School Diploma/GED Difficulty w/ Childcare or Family Care: No Living arrangements: with family Occupation/Education: student Gender identity (if verbalized by the patient): Male Spiritual care concerns: No Meds Home Medications and Allergies Home Medications ?Medication ?Instructions ?Recorded ?Confirmed ?Type ondansetron HCl 4 mg tablet 4 mg PO Q6H PRN nausea and vomiting 07/28/24 07/28/24 History Allergies Allergy/AdvReac Type Severity Reaction Status Date / Time amoxicillin Allergy Severe Throat Verified 07/28/24 14:40 swelling and rash sulfamethoxazole Allergy Unknown convulsions Verified 07/28/24 14:40 trimethoprim Allergy Unknown convulsions Verified 07/28/24 14:40 Vital Signs Vital Signs - 24 hr 07/28/24 13:23 07/28/24 15:00 07/28/24 20:33 Temperature 97.6 F Pulse Rate 68 76 69 Respiratory Rate 16 18 18 Blood Pressure 136/66 128/79 153/93 H Pulse Oximetry 100 100 100 Oxygen Delivery Room Air Exam 2 Narrative: Weight 86 kg BMI 25.7 Const: Other: No acute distress, well-developed well-nourished HENMT: Other: Mucous membranes are tacky, no oral pharyngeal erythema Eyes: Other: Pupils are equal and reactive, no scleral icterus, no conjunctival pallor Neck: Other: No JVD, no lymphadenopathy Resp: Other: Clear to auscultation bilaterally, no increased work of breathing Cardio: Other: Regular rate, regular rhythm, 2+ bilateral radial pedal pulses GI: Other: Soft, nondistended, normoactive bowel sounds, hepatomegaly, mild right upper quadrant tenderness to palpation, no significant epigastric tenderness no obvious splenomegaly on palpation Skin: Other: No jaundice, no pallor, petechiae of the left upper arm where blood pressure cuff rested Neuro: Other: Alert orient x4, speech is clear, no facial asymmetry Extrem: Other: No clubbing, cyanosis or edema Psych: Other: Appropriate mood and affect, pleasant and cooperative, judgment and insight intact H&P: Results Labs Labs: Laboratory Tests 07/28/24 14:48 07/28/24 14:48 07/28/24 07/28/24 07/28/24 14:48 15:19 20:00 WBC 6.8 RBC 5.02 Hgb 15.0 Hct 44.0 MCV 87.6 MCH 29.9 MCHC 34.1 RDW 12.5 Plt Count 195 MPV 8.0 Immature Gran % (Auto) 0.3 Neut % (Auto) 68.1 Lymph % (Auto) 22.4 [place] % (Auto) 8.4 Eos % (Auto) 0.4 Baso % (Auto) 0.4 Lymph # (Auto) 1.51 [place] # (Auto) 0.6 Eos # (Auto) 0.0 Baso # (Auto) 0.0 Abs Immat Gran (auto) 0.02 Absolute Neuts (auto) 4.6 Absolute Nucleated RBC 0.000 Nucleated RBC % 0.0 Sodium 139 Potassium 3.8 Chloride 105 Carbon Dioxide 28 Anion Gap 6 BUN 11 Creatinine 0.78 Estim Creat Clear Calc 144 Estimated GFR > 60 Glucose 102 Calcium 9.7 Total Bilirubin 2.7 H AST 21 ALT 21 Alkaline Phosphatase 35 L Total Protein 7.4 Albumin 4.4 Lipase 97 Urine Color Yellow Urine Appearance Clear Urine pH 6.5 Ur Specific [place] 1.021 Urine Protein Negative Urine Glucose (UA) Negative Urine Ketones 1+ H Ur Blood (Man) Negative Urine Nitrate Negative Urine Bilirubin Negative Urine Urobilinogen 1.0 Leukocyte Esterase Rfl Negative Hepatitis A IgM Ab Negative Hep Bs Antigen Negative Hep B Core IgM Ab Negative Hepatitis C Ab Screen Negative Monoscreen Negative Impressions Abdomen/Pelvis CT 07/28/24 16:16 IMPRESSION: Mild esophagitis/gastritis. Hepatosplenomegaly. Periportal edema. Enriqueta hepatis lymphadenopathy. Consider acute hepatitis in the differential. Correlate with liver labs and any history of trauma, or progressive fluid resuscitation. Other causes of portal edema such as CHF, cholangitis and pyelonephritis are considered less likely in a patient of this age and given the lack of associated CT abnormalities. Cholelithiasis, without CT evidence of cholecystitis. ADDENDUM: 07/28/242015 The impression contains a voice recognition error, progressive fluid resuscitation is corrected to, aggressive fluid resuscitation. Abdomen Ultrasound 07/28/24 19:32 IMPRESSION: Hepatomegaly. Cholelithiasis. Mild gallbladder wall thickening. No pericholecystic fluid or common bile duct dilation. Negative sonographic Acharya sign although this may be confounded by current pain medication use. Periportal hyperechogenicity, as can be seen with cholecystitis and inflammatory bowel disease. No CT findings of pneumobilia or recurrent pyogenic cholangitis which can also cause this finding. Consider schistosomiasis if there has been travel to endemic regions. Assessment and Plan Assessment and plan (1) Abdominal pain: Qualifiers: Abdominal location: right upper quadrant Qualified Code(s): R10.11 - Right upper quadrant pain Code(s): R10.9 - Unspecified abdominal pain Status: Acute (2) Hepatosplenomegaly: Code(s): R16.2 - Hepatomegaly with splenomegaly, not elsewhere classified Status: Acute (3) Cholelithiasis: Qualifiers: Biliary obstruction: without biliary obstruction Cholecystitis presence: without cholecystitis Cholelithiasis location: gallbladder Qualified Code(s): K80.20 - Calculus of gallbladder without cholecystitis without obstruction Code(s): K80.20 - Calculus of gallbladder without cholecystitis without obstruction Status: Acute (4) Esophagitis with gastritis: Code(s): K29.70 - Gastritis, unspecified, without bleeding; K20.90 - Esophagitis, unspecified without bleeding Status: Acute Plan Hepatic splenomegaly with he history of chronic cholecystitis with numerous gallstones noted on imaging. Although patient had negative sonographic Acharya sign and only mild gallbladder wall thickening with no. Colic fluid or common bile duct dilatation. Patient has acute hepatitis panel was negative although this could be falsely negative early in disease process patient is not having any symptoms of acute infection to indicate acute cholecystitis or hepatitis. Will check HIV panel and will repeat CBC and CMP in a.m.. GI has been consulted. Patient will remain NPO until evaluated by Gastroenterology. The patient's CT does demonstrate evidence of esophagitis and gastritis of place patient on Protonix IV daily. Monospot was also negative and patient has no evidence of lymphocytosis on CBC. Smoking/vaping cessation education was provided not exceeding 3 minutes. Patient has been admitted as observation status. Quality VTE Prophylaxis VTE prophylaxis: pharmacologic ordered (Lovenox 40 mg subQ daily.) Hospitalist [facility] Advance Care Plan I have confirmed that the patient's Advanced Care Plan is present, code status is documented, or surrogate decision maker is listed in patient medical record.: Yes Medication Reconciliation I have utilized all available resources to obtain, update and review the patients current medications (includes all prescriptions, OTC, herbals, cannabis, and nutritional supplements).: Yes
[2024-07-28 21:37] VITALS: BMI 25.7
--- NOTE | 2024-07-28 21:43 | ADMGEN ---
This patient, Star Devi II, was admitted to Medical Room 257-01. Patient/family oriented to hospital policies and general routines including ID bracelet, bed and alarms, visiting hours, pain management, procedures, bathroom and other care routines, personal items, smoking policy, room service/diet, and visiting hours. Information on how to activate the Rapid Response Team has been discussed. Patient/Family are encouraged to report perceived risks to care and to ask questions if they do not understand what they are told or what they should do.
[2024-07-28 21:48] VITALS: BP 141/84; PULSE 60; RESP 20; TEMP 36.7; O2SAT 100
[2024-07-28] MEDS: SODIUM CHLORIDE 0.9% IV 1,000 ML 125 ML IV CONT (22:16)
[2024-07-28] MEDS: PANTOPRAZOLE SODIUM IV 40 MG VIAL IV PUSH (22:17)
[2024-07-29 05:03] LABS: Basophils Percent Auto 0.5 % (0.2-1.2); Eosinophils Absolute Auto 0.1 K/mm3 (0-0.3); Eosinophils Percent Auto 1.2 % (0-4.4); Hemoglobin 14.4 g/dL (14.0-18.0); Immature Granulocyte Absolute 0.02 K/mm3 (0.00-0.031); Immature Granulocyte Percent A 0.3 % (0-0.5); Lymphocytes Absolute Auto 2.57 K/mm3 (0.9-3.2); Lymphocytes Percent Auto 39.4 % (18.3-44.2); Mean Corpuscular HGB Conc 33.5 g/dl (32-36); Mean Corpuscular Volume 89.6 fl (80-100); Mean Platelet Volume 8.3 fl (7.4-10.4); Monocytes Absolute Auto 0.6 K/mm3 (0.1-0.6); Monocytes Percent Auto 9.3 % (2.6-8.5); Neutrophils Absolute Auto 3.2 K/mm3 (1.3-6.7); Neutrophils Percent Auto 49.3 % (45.5-73.1); Platelet Count Result 182 k/mm3 (150-375); Red Cell Distribution Width 12.5 % (11.5-14.5); White Blood Count 6.5 K/mm3 (4.5-10.0)
[2024-07-29 05:14] VITALS: BP 118/61; PULSE 85; RESP 20; TEMP 36.6; O2SAT 100
[2024-07-29 05:18] LABS: INR 1.3; Prothrombin Time 16.6 Seconds (11.1-14.7)
[2024-07-29 05:19] LABS: Partial Thromboplastin Time 30.1 Seconds (22.3-36.8)
[2024-07-29 05:33] LABS: Alanine Aminotransferase 18 U/L (6-50); Albumin Level 3.7 g/dL (3.5-5.1); Alkaline Phosphatase 32 U/L (38-126); Anion Gap 7 mmol/L (4-12); Aspartate Amino Transferase 19 U/L (17-59); Bilirubin,Total 3.6 mg/dL (0.2-1.3); Blood Urea Nitrogen 9 mg/dL (9-20); Calcium 9.1 mg/dL (8.4-10.2); Carbon Dioxide 26 mmol/L (22-30); Chloride 107 mmol/L (98-107); Estimated CRCL calculation 135 ml/min; Estimated Glomerular Filt Rate > 60; Glucose 87 mg/dL (65-110); Lactate Dehydrogenase 106 U/L (120-246); Potassium 3.4 mmol/L (3.4-5.0); Sodium 140 mmol/L (137-145); Total Protein 6.4 g/dL (6.3-8.2)
[2024-07-29 06:05] LABS: HIV 1/2 Ab P24 Ag Result Negative (Negative)
[2024-07-29 06:50] LABS: Immature Reticulocyte Fraction 3.8 % (3.0-15.9); Reticulocyte Hemoglobin Conten 34.8 pg (28.2-36.6); Reticulocyte Percent 0.88 % (0.7-4.3); Reticulocytes Absolute 0.04 10^6/uL (0.02-0.10)
[2024-07-29 06:51] LABS: Bilirubin Indirect 3.1 mg/dL (0-1.1); Lactate Dehydrogenase 113 U/L (120-246)
--- NOTE | 2024-07-29 07:18 | WPDGICN ---
Assessment and Plan Assessment and plan (1) Cholelithiasis: Qualifiers: Cholelithiasis location: gallbladder Cholecystitis presence: without cholecystitis Biliary obstruction: without biliary obstruction Qualified Code(s): K80.20 - Calculus of gallbladder without cholecystitis without obstruction Code(s): K80.20 - Calculus of gallbladder without cholecystitis without obstruction Status: Acute Assessment and Plan: The patient's presentation of typical symptoms in the setting of well-documented cholelithiasis strongly indicates the need for a surgical consultation and laparoscopic cholecystectomy. Beyond the gallbladder findings, the CT scan also revealed periportal edema and lymphadenopathy in the katina hepatis. While a malignant process like lymphoma is a possibility, we consider it low on our differential at this time. The mild hyperbilirubinemia warrants further investigation. Our differential includes Gilbert's syndrome or hemolysis. To clarify the cause, we will order LDH, reticulocyte count, haptoglobin, and fractionated bilirubins.Finally, during the cholecystectomy, we recommend that the surgeons explore the katina hepatis area to assess the significance of the lymph node and determine if it represents a true finding or an artifact. GI Consult Note Consult date/time: 07/29/24 07:18 Reason for consult: abdominal pain -symptomatic cholelithiasis HPI: Star Devi II is a 18-year-old male admitted yesterday with severe epigastric and right upper quadrant pain of several hours' duration. He was diagnosed with cholelithiasis one year ago, but his scheduled surgery was canceled due to a lack of COVID vaccination. For the past year, Star has experienced daily nausea and admits to nightly marijuana use. He denies weight loss, fever, jaundice, recurrent abdominal pain episodes, rectal bleeding, hematemesis, or melena. On admission, a CT scan revealed cholelithiasis, hepatosplenomegaly, periportal edema, and a noticeable lymph node in the katina hepatis. His admission laboratory tests showed: white count 6.5, hemoglobin 14.4, platelet count 182, INR 1.3, sodium 140, potassium 3.4, total bilirubin 2.7, AST 21, ALT 21, alkaline phosphatase 35, and albumin 4.4. Review of Systems Review of Systems: All systems reviewed & are unremarkable except as noted in HPI and below [facility] Past Medical History Medical History (Updated 07/28/24 @ 21:33 by Sharita Chiang DO) Eczema Acne Surgical History Surgical History (Updated 07/29/24 @ 01:21 by Sharita Chiang DO) No history of previous surgery Family History Family History (Updated 07/29/24 @ 01:24 by Sharita Chiang DO) Mother Diabetes mellitus CHF (congestive heart failure) Hypertension COPD (chronic obstructive pulmonary disease) Breast cancer Other Cirrhosis of liver Degenerative disc disease Social History Social History (Updated 07/29/24 @ 01:28 by Sharita Chiang DO) Social History: Patient recently moved back in with his mother. He works in [employer]. He drinks alcohol about once a month and he can drink anywhere from 2-3 drinks up to a pint when he does drink. He has not drink alcohol in 2 or 3 weeks. He smokes cigarettes on the weekends and the the rest of time he vapes. He reports that he vapes almost constantly. He started vaping at age 16. He denies illicit substance use. Code status: Full code Surrogate decision maker: Mother Smoking status: Current every day smoker Tobacco type: cigarettes and e-cigarettes/vaping Alcohol intake: current Drinks per week: 1 Substance use: current Substance use type: marijuana Last use: 07/27/24 Do You Feel Safe in your Home?: Yes Lack of Transportation: No Lack of Food: Never True Current Housing: I Have Housing Concerned About Future Housing: No Difficulty Paying Gas/Electric Bills: No Difficulty Paying for Meds: No Currently Unemployed: No Education: High School Diploma/GED Difficulty w/ Childcare or Family Care: No Living arrangements: with family Occupation/Education: student Gender identity (if verbalized by the patient): Male Spiritual care concerns: No Meds Home Medications and Allergies Home Medications ?Medication ?Instructions ?Recorded ?Confirmed ?Type ondansetron HCl 4 mg tablet 4 mg PO Q6H PRN nausea and vomiting 07/28/24 07/28/24 History Allergies Allergy/AdvReac Type Severity Reaction Status Date / Time amoxicillin Allergy Severe Throat Verified 07/28/24 14:40 swelling and rash sulfamethoxazole Allergy Unknown convulsions Verified 07/28/24 14:40 trimethoprim Allergy Unknown convulsions Verified 07/28/24 14:40 Vital Signs Vital Signs - 24 hr 07/28/24 13:23 07/28/24 15:00 07/28/24 20:33 Temperature 97.6 F Pulse Rate 68 76 69 Respiratory Rate 16 18 18 Blood Pressure 136/66 128/79 153/93 H Pulse Oximetry 100 100 100 Oxygen Delivery Room Air 07/28/24 21:48 07/28/24 22:00 07/29/24 05:14 Temperature 98.1 F 97.9 F Pulse Rate 60 85 Respiratory Rate 20 20 Blood Pressure 141/84 H 118/61 Pulse Oximetry 100 100 Oxygen Delivery Room Air Exam Const: General: cooperative and healthy appearing Resp: Effort & Inspection: normal respiratory effort and able to speak in complete sentences Auscultation: clear to auscultation bilaterally Cardio: Rate: regular rate Rhythm: regular rhythm GI: Inspection: normal to inspection GI Palp: No No hepatosplenomegaly present Auscultation: normal bowel sounds Rectal Exam: deferred Skin: General skin exam: normal color Psych: Appearance: grossly normal Mental Status: mental status grossly normal Results Labs 07/29/24 04:37 07/29/24 04:37 Labs: Short CBC 07/28/24 07/29/24 Range/Units 14:48 04:37 WBC 6.8 6.5 (4.5-10.0) K/mm3 Hgb 15.0 14.4 (14.0-18.0) g/dL Hct 44.0 43.0 (42.0-52.0) % Plt Count 195 182 (150-375) k/mm3 [facility] 07/28/24 07/29/24 14:48 04:37 Sodium 139 140 Potassium 3.8 3.4 Chloride 105 107 Carbon Dioxide 28 26 BUN 11 9 Creatinine 0.78 0.84 Glucose 102 87 Calcium 9.7 9.1 Liver Function 07/28/24 07/29/24 Range/Units 14:48 04:37 Total Bilirubin 2.7 H 3.6 H (0.2-1.3) mg/dL AST 21 19 (17-59) U/L ALT 21 18 (6-50) U/L Alkaline Phosphatase 35 L 32 L (38-126) U/L Albumin 4.4 3.7 (3.5-5.1) g/dL Urine 07/28/24 Range/Units 15:19 Urine Color Yellow (Yellow) Urine Appearance Clear (Clear) Urine pH 6.5 (5.0-9.0) Ur Specific [place] 1.021 (1.001-1.035) Urine Protein Negative (Negative) mg/dL Urine Glucose (UA) Negative (Negative) mg/dL
[2024-07-29] MEDS: MORPHINE SULFATE (*CRX) 4 MG/ML INJ IV PUSH (07:38)
[2024-07-29] MEDS: ONDANSETRON INJ 4 MG/2 ML VIAL IV PUSH (07:39)
--- NOTE | 2024-07-29 07:57 | P.PNIM_ITS ---
Progress Note: A&P Assessment and Plan (1) Abdominal pain: Qualifiers: Abdominal location: right upper quadrant Qualified Code(s): R10.11 - Right upper quadrant pain Code(s): R10.9 - Unspecified abdominal pain Status: Acute (2) Hepatosplenomegaly: Code(s): R16.2 - Hepatomegaly with splenomegaly, not elsewhere classified Status: Acute (3) Cholelithiasis: Qualifiers: Cholelithiasis location: gallbladder Cholecystitis presence: without cholecystitis Biliary obstruction: without biliary obstruction Qualified Cod e(s): K80.20 - Calculus of gallbladder without cholecystitis without obstruction Code(s): K80.20 - Calculus of gallbladder without cholecystitis without obstruction Status: Acute (4) Esophagitis with gastritis: Code(s): K29.70 - Gastritis, unspecified, without bleeding; K20.90 - Esophagitis, unspecified without bleeding Status: Acute Subjective Date/time seen: 07/29/24 07:57 Interval history: 18-year-old male with a past medical history of cholelithiasis and chronic cholecystitis who presented to the ER with right-sided abdominal pain started morning of 07/28. 07/29/2024 Review of Systems Review of Systems: 12 systems were reviewed with pertinent positives and negatives per HPI. Except as documented in the HPI, all other systems were reviewed and are negative. Exam Narrative: Weight 86 kg BMI 25.7 Const: Other: No acute distress, well-developed well-nourished HENMT: Other: Mucous membranes are tacky, no oral pharyngeal erythema Eyes: Other: Pupils are equal and reactive, no scleral icterus, no conjunctival pallor Neck: Other: No JVD, no lymphadenopathy Resp: Other: Clear to auscultation bilaterally, no increased work of breathing Cardio: Other: Regular rate, regular rhythm, 2+ bilateral radial pedal pulses GI: Other: Soft, nondistended, normoactive bowel sounds, hepatomegaly, mild right upper quadrant tenderness to palpation, no significant epigastric tenderness no obvious splenomegaly on palpation Skin: Other: No jaundice, no pallor, petechiae of the left upper arm where blood pressure cuff rested Neuro: Other: Alert orient x4, speech is clear, no facial asymmetry Extrem: Other: No clubbing, cyanosis or edema Psych: Other: Appropriate mood and affect, pleasant and cooperative, judgment and insight intact Objective Data Vital Signs Vital Signs: Vital Signs - 24 hr 07/28/24 13:23 07/28/24 15:00 07/28/24 20:33 Temperature 97.6 F Pulse Rate 68 76 69 Respiratory Rate 16 18 18 Blood Pressure 136/66 128/79 153/93 H Pulse Oximetry 100 100 100 Oxygen Delivery Room Air 07/28/24 21:48 07/28/24 22:00 07/29/24 05:14 Temperature 98.1 F 97.9 F Pulse Rate 60 85 Respiratory Rate 20 20 Blood Pressure 141/84 H 118/61 Pulse Oximetry 100 100 Oxygen Delivery Room Air Intake/Output Intake/Output: Intake & Output 07/26/24 07/27/24 07/28/24 07/29/24 23:59 23:59 23:59 23:59 Intake Total 1000 0 Output Total 100 Balance 1000 -100 Meds/Results Medications: Active Medications Generic Name Dose Route Start Last Admin Trade Name Freq PRN Reason Stop Dose Admin Enoxaparin Sodium 40 mg 07/29/24 09:00 Enoxaparin 40 Mg/0.4 Ml Syringe SUB-Q DAILY [facility] Sodium Chloride 1,000 mls @ 125 mls/hr 07/28/24 20:00 07/28/24 22:16 Normal Saline Iv IV CONT 125 mls/hr .Q8H SWAPNA Administration Morphine Sulfate 4 mg 07/28/24 21:25 07/29/24 07:38 Morphine Sulfate (*Crx) 4 Mg/Ml Inj IV PUSH 4 mg Q4H PRN Administration Pain Rated 7-10 Ondansetron HCl 4 mg 07/28/24 19:56 07/29/24 07:39 Ondansetron Inj 4 Mg/2 Ml Vial IV PUSH 4 mg Q4H PRN Administration Nausea Pantoprazole Sodium 40 mg 07/29/24 09:00 Pantoprazole 40 Mg [facility] [place]: ITS Impressions Abdomen/Pelvis CT 07/28/24 16:16 IMPRESSION: Mild esophagitis/gastritis. Hepatosplenomegaly. Periportal edema. Enriqueta hepatis lymphadenopathy. Consider acute hepatitis in the differential. Correlate with liver labs and any history of trauma, or progressive fluid resuscitation. Other causes of portal edema such as CHF, cholangitis and pyelonephritis are considered less likely in a patient of this age and given the lack of associated CT abnormalities. Cholelithiasis, without CT evidence of cholecystitis. ADDENDUM: 07/28/242015 The impression contains a voice recognition error, progressive fluid resuscitation is corrected to, aggressive fluid resuscitation. Abdomen Ultrasound 07/28/24 19:32 IMPRESSION: Hepatomegaly. Cholelithiasis. Mild gallbladder wall thickening. No pericholecystic fluid or common bile duct dilation. Negative sonographic Acharya sign although this may be confounded by current pain medication use. Periportal hyperechogenicity, as can be seen with cholecystitis and inflammatory bowel disease. No CT findings of pneumobilia or recurrent pyogenic cholangitis which can also cause this finding. Consider schistosomiasis if there has been travel to endemic regions. Labs Labs: Laboratory Results - last 24 hr 07/28/24 07/28/24 07/28/24 14:48 15:19 20:00 WBC 6.8 RBC 5.02 Hgb 15.0 Hct 44.0 MCV 87.6 MCH 29.9 MCHC 34.1 RDW 12.5 Plt Count 195 MPV 8.0 Immature Gran % (Auto) 0.3 Neut % (Auto) 68.1 Lymph % (Auto) 22.4 [place] % (Auto) 8.4 Eos % (Auto) 0.4 Baso % (Auto) 0.4 Lymph # (Auto) 1.51 [place] # (Auto) 0.6 Eos # (Auto) 0.0 Baso # (Auto) 0.0 Abs Immat Gran (auto) 0.02 Absolute Neuts (auto) 4.6 Absolute Nucleated RBC 0.000 Nucleated RBC % 0.0 Absolute Retic Percent Retic Immature Retic Fraction Retic Hgb Content PT INR APTT Sodium 139 Potassium 3.8 Chloride 105 Carbon Dioxide 28 Anion Gap 6 BUN 11 Creatinine 0.78 Estim Creat Clear Calc 144 Estimated GFR > 60 Glucose 102 Calcium 9.7 Ferritin Total Bilirubin 2.7 H Indirect Bilirubin AST 21 ALT 21 Alkaline Phosphatase 35 L Lactate Dehydrogenase Total Protein 7.4 Albumin 4.4 Lipase 97 Urine Color Yellow Urine Appearance Clear Urine pH 6.5 Ur Specific [place] 1.021 Urine Protein Negative Urine Glucose (UA) Negative Urine Ketones 1+ H Ur Blood (Man) Negative Urine Nitrate Negative Urine Bilirubin Negative Urine Urobilinogen 1.0 Leukocyte Esterase Rfl Negative Hepatitis A IgM Ab Negative Hep Bs Antigen Negative Hep B Core IgM Ab Negative Hepatitis C Ab Screen Negative Monoscreen Negative HIV 1&2 Ab/P24 Ag 4thGn 07/29/24 07/29/24 07/29/24 04:23 04:32 04:36 WBC RBC Hgb Hct MCV MCH MCHC RDW Plt Count MPV Immature Gran % (Auto) Neut % (Auto) Lymph % (Auto) [place] % (Auto) Eos % (Auto) Baso % (Auto) Lymph # (Auto) [place] # (Auto) Eos # (Auto) Baso # (Auto) Abs Immat Gran (auto) Absolute Neuts (auto) Absolute Nucleated RBC Nucleated RBC % Absolute Retic 0.04 Percent Retic 0.88 Immature Retic Fraction 3.8 Retic Hgb Content 34.8 PT 16.6 H INR 1.3 APTT 30.1 Sodium Potassium Chloride Carbon Dioxide Anion Gap BUN Creatinine Estim Creat Clear Calc Estimated GFR Glucose Calcium Ferritin Total Bilirubin Indirect Bilirubin 3.1 H AST ALT Alkaline Phosphatase Lactate Dehydrogenase 113 L Total Protein Albumin Lipase Urine Color Urine Appearance Urine pH Ur Specific [place] Urine Protein Urine Glucose (UA) Urine Ketones Ur Blood (Man) Urine Nitrate Urine Bilirubin Urine Urobilinogen Leukocyte Esterase Rfl Hepatitis A IgM Ab Hep Bs Antigen Hep B Core IgM Ab Hepatitis C Ab Screen Monoscreen HIV 1&2 Ab/P24 Ag 4thGn 07/29/24 04:37 WBC 6.5 RBC 4.80 Hgb 14.4 Hct 43.0 MCV 89.6 MCH 30.0 MCHC 33.5 RDW 12.5 Plt Count 182 MPV 8.3 Immature Gran % (Auto) 0.3 Neut % (Auto) 49.3 Lymph % (Auto) 39.4 [place] % (Auto) 9.3 H Eos % (Auto) 1.2 Baso % (Auto) 0.5 Lymph # (Auto) 2.57 [place] # (Auto) 0.6 Eos # (Auto) 0.1 Baso # (Auto) 0.0 Abs Immat Gran (auto) 0.02 Absolute Neuts (auto) 3.2 Absolute Nucleated RBC 0.000 Nucleated RBC % 0.0 Absolute Retic Percent Retic Immature Retic Fraction Retic Hgb Content PT INR APTT Sodium 140 Potassium 3.4 Chloride 107 Carbon Dioxide 26 Anion Gap 7 BUN 9 Creatinine 0.84 Estim Creat Clear Calc 135 Estimated GFR > 60 Glucose 87 Calcium 9.1 Ferritin 73.90 Total Bilirubin 3.6 H Indirect Bilirubin AST 19 ALT 18 Alkaline Phosphatase 32 L Lactate Dehydrogenase 106 L Total Protein 6.4 Albumin 3.7 Lipase Urine Color Urine Appearance Urine pH Ur Specific [place] Urine Protein Urine Glucose (UA) Urine Ketones Ur Blood (Man) Urine Nitrate Urine Bilirubin Urine Urobilinogen Leukocyte Esterase Rfl Hepatitis A IgM Ab Hep Bs Antigen Hep B Core IgM Ab Hepatitis C Ab Screen Monoscreen HIV 1&2 Ab/P24 Ag 4thGn Negative Quality VTE Prophylaxis VTE prophylaxis: pharmacologic ordered (Lovenox 40 mg subQ daily.)
[2024-07-29 07:59] VITALS: O2SAT 100
[2024-07-29] MEDS: PANTOPRAZOLE 40 MG TABLET PO (10:33)
[2024-07-29] MEDS: SODIUM CHLORIDE 0.9% IV 1,000 ML 125 ML IV CONT (10:33)
--- NOTE | 2024-07-29 10:36 | P.CONGS_ITS ---
Assessment and Plan Assessment and plan (1) Cholelithiasis with chronic cholecystitis: Code(s): K80.10 - Calculus of gallbladder with chronic cholecystitis without obstruction Status: Acute Assessment and Plan: * Patient has had RUQ pain intermittently for the past year, consistent with gallbladder disease. Abdominal US showed cholelithiasis with gallbladder wall thickening. This acute episode could have also been related to his gallbladder as well, but his abdominal pain and nausea has improved. He reports that he is having pain which is similar to the pain he has been experiencing over the past year. We offered proceeding with a laparoscopic cholecystectomy, and the patient wishes to do this as an outpatient. Will start advancing his diet as tolerated to a low-fat diet. If he is able to tolerate a diet, then we will set him up as an outpatient to follow up with Dr. Low in our office later this week or next week. He was instructed to follow a low-fat diet leading up to surgery. If he is unable to tolerate a diet, then we may need to consider proceeding with surgery during this hospitalization. We will continue to follow along. (2) Esophagitis with gastritis: Code(s): K29.70 - Gastritis, unspecified, without bleeding; K20.90 - Esophagitis, unspecified without bleeding Status: Acute Assessment and Plan: * Noted on imaging. Continue PPI. GI following. (3) Hyperbilirubinemia: Code(s): E80.6 - Other disorders of bilirubin metabolism Status: Acute Assessment and Plan: * Total bilirubin at 2.7 on admission and 3.6 today. Indirect bilirubin elevated at 3.1. He does have cholelithiasis, but no biliary duct dilatation on any imaging. Could also be Gilbert's syndrome. GI following. Plan I have discussed the patient's case and plan of care with Dr. Low. History of Present Illness Consult details Consult date: 07/29/24 Reason for consult: other (Symptomatic cholelithiasis and lymphadenopathy in enriqueta hepatis) Requesting physician: Triston Abdalla MD Narrative: This is a 18-year-old male who we have been asked to see in surgical consultation for symptomatic cholelithiasis. He has been having symptoms for about a year. He reports right upper quadrant abdominal pain that is very mild, but daily. There will be times that the pain intensifies, but improved without intervention. He reports his pain is aggravated by fatty/spicy foods. Was scheduled for surgery about a year ago, which was canceled. He admits to having nausea almost daily and has marijuana use daily. He has not been adjusting his diet to avoid symptoms. Yesterday, he developed more intense right upper quadrant pain that radiated into his back. This was associated with vomiting. He then came into the ED for evaluation. Labs showed a normal white blood cell count, total bilirubin 2.7, AST 21, ALT 21, alk-phos 35, lipase normal. Repeat labs this morning showed indirect bilirubin elevated at 3.1. CT scan of the abdomen and pelvis showed mild esophagitis/gastritis, hepatosplenomegaly, periportal edema, enriqueta hepatis lymphadenopathy, and cholelithiasis without CT evidence of cholecystitis. Abdominal ultrasound showed hepatomegaly, cholelithiasis with mild gallbladder wall thickening, but no pericholecystic fluid or common bile duct dilation. Periportal hyperechogenicity, as can be seen with cholecystitis and inflammatory bowel disease. GI was consulted and he was admitted. His abdominal pain has significantly improved. He still had mild nausea earlier this morning, but no vomiting since admission. Review of Systems 2 Review of Systems: All systems reviewed & are unremarkable except as noted in HPI and below PMFSH Past Medical History Medical History (Updated 07/29/24 @ 10:49 by MARS Glynn) Eczema Acne Surgical History Surgical History No history of previous surgery Family History Family History Mother Diabetes mellitus CHF (congestive heart failure) Hypertension COPD (chronic obstructive pulmonary disease) Breast cancer Other Cirrhosis of liver Degenerative disc disease Social History Social History Social History: Patient recently moved back in with his mother. He works in [employer]. He drinks alcohol about once a month and he can drink anywhere from 2-3 drinks up to a pint when he does drink. He has not drink alcohol in 2 or 3 weeks. He smokes cigarettes on the weekends and the the rest of time he vapes. He reports that he vapes almost constantly. He started vaping at age 16. He denies illicit substance use. Code status: Full code Surrogate decision maker: Mother Smoking status: Current every day smoker Tobacco type: cigarettes and e-cigarettes/vaping Alcohol intake: current Drinks per week: 1 Substance use: current Substance use type: marijuana Last use: 07/27/24 Do You Feel Safe in your Home?: Yes Lack of Transportation: No Lack of Food: Never True Current Housing: I Have Housing Concerned About Future Housing: No Difficulty Paying Gas/Electric Bills: No Difficulty Paying for Meds: No Currently Unemployed: No Education: High School Diploma/GED Difficulty w/ Childcare or Family Care: No Living arrangements: with family Occupation/Education: student Gender identity (if verbalized by the patient): Male Spiritual care concerns: No Meds Home Medications and Allergies Home Medications ?Medication ?Instructions ?Recorded ?Confirmed ?Type ondansetron HCl 4 mg tablet 4 mg PO Q6H PRN nausea and vomiting 07/28/24 07/28/24 History Allergies Allergy/AdvReac Type Severity Reaction Status Date / Time amoxicillin Allergy Severe Throat Verified 07/28/24 14:40 swelling and rash sulfamethoxazole Allergy Unknown convulsions Verified 07/28/24 14:40 trimethoprim Allergy Unknown convulsions Verified 07/28/24 14:40 Vital Signs Vital Signs - 24 hr 07/28/24 13:23 07/28/24 15:00 07/28/24 20:33 Temperature 97.6 F Pulse Rate 68 76 69 Respiratory Rate 16 18 18 Blood Pressure 136/66 128/79 153/93 H Pulse Oximetry 100 100 100 Oxygen Delivery Room Air 07/28/24 21:48 07/28/24 22:00 07/29/24 05:14 Temperature 98.1 F 97.9 F Pulse Rate 60 85 Respiratory Rate 20 20 Blood Pressure 141/84 H 118/61 Pulse Oximetry 100 100 Oxygen Delivery Room Air 07/29/24 07:59 Temperature Pulse Rate Respiratory Rate Blood Pressure Pulse Oximetry 100 Oxygen Delivery Room Air Exam 2 Const: General: comfortable and no acute distress Nutritional Appearance: a verage body habitus Orientation/consciousness: patient oriented x3 HENMT: Head: normocephalic and atraumatic Ears: hearing grossly normal bilaterally Mouth: Yes moist mucous membranes Eyes: General: appearance normal, both eyes and all related structures P upils: Equal, round and reactive pupils present Neck: Neck: normal visual inspection and full ROM Resp: Effort & Inspection: no respiratory distress Auscultation: clear to auscultation bilaterally Cardio: Rate: regular rate Rhythm: regular rhythm Peripheral pulses: P eripheral pulses 2+ throughout GI: Inspection: non-distended and no scars GI Palp: Yes Soft to palpation, Yes Tenderness to palpation present (GI) (RUQ), No Guarding due to palpation present (GI), Yes No hepatosplenomegaly present, No Hernia present and No Rebound tenderness present Auscultation: normal bowel sounds Skin: General skin exam: normal color Neuro: General: moves all extremities and no focal motor deficits Speech: n ormal speech Motor exam (neuro): 5/5 motor strength present throughout Extrem: General: normal to inspection and no edema Psych: Mental Status: mental status grossly normal Attitude: cooperative Insight: Good insight present (Psych) Judgement: Good judgement present (Psych) Results Labs 07/29/24 04:37 07/29/24 04:37 Labs: Abnormal lab results 07/28/24 07/28/24 07/29/24 Range/Units 14:48 15:19 04:32 [place] % (Auto) (2.6-8.5) % PT (11.1-14.7) Seconds Total Bilirubin 2.7 H (0.2-1.3) mg/dL Indirect Bilirubin 3.1 H (0-1.1) mg/dL Alkaline Phosphatase 35 L (38-126) U/L Lactate Dehydrogenase 113 L (120-246) U/L Urine Ketones 1+ H (Negative) mg/dL 07/29/24 07/29/24 Range/Units 04:36 04:37 [place] % (Auto) 9.3 H (2.6-8.5) % PT 16.6 H (11.1-14.7) Seconds Total Bilirubin 3.6 H (0.2-1.3) mg/dL Indirect Bilirubin (0-1.1) mg/dL Alkaline Phosphatase 32 L (38-126) U/L Lactate Dehydrogenase 106 L (120-246) U/L Urine Ketones (Negative) mg/dL Diabetes panel 07/28/24 07/29/24 Range/Units 14:48 04:37 Sodium 139 140 (137-145) mmol/L Potassium 3.8 3.4 (3.4-5.0) mmol/L Chloride 105 107 (98-107) mmol/L Carbon Dioxide 28 26 (22-30) mmol/L BUN 11 9 (9-20) mg/dL Creatinine 0.78 0.84 (0.7-1.3) mg/dL Glucose 102 87 (65-110) mg/dL Calcium 9.7 9.1 (8.4-10.2) mg/dL AST 21 19 (17-59) U/L ALT 21 18 (6-50) U/L Alkaline Phosphatase 35 L 32 L (38-126) U/L Total Protein 7.4 6.4 (6.3-8.2) g/dL Albumin 4.4 3.7 (3.5-5.1) g/dL Calcium panel 07/28/24 07/29/24 Range/Units 14:48 04:37 Calcium 9.7 9.1 (8.4-10.2) mg/dL Albumin 4.4 3.7 (3.5-5.1) g/dL Pituitary panel 07/28/24 07/29/24 Range/Units 14:48 04:37 Sodium 139 140 (137-145) mmol/L Potassium 3.8 3.4 (3.4-5.0) mmol/L Chloride 105 107 (98-107) mmol/L Carbon Dioxide 28 26 (22-30) mmol/L BUN 11 9 (9-20) mg/dL Creatinine 0.78 0.84 (0.7-1.3) mg/dL Glucose 102 87 (65-110) mg/dL Calcium 9.7 9.1 (8.4-10.2) mg/dL Adrenal panel 07/28/24 07/29/24 Range/Units 14:48 04:37 Sodium 139 140 (137-145) mmol/L Potassium 3.8 3.4 (3.4-5.0) mmol/L Chloride 105 107 (98-107) mmol/L Carbon Dioxide 28 26 (22-30) mmol/L BUN 11 9 (9-20) mg/dL Creatinine 0.78 0.84 (0.7-1.3) mg/dL Glucose 102 87 (65-110) mg/dL Calcium 9.7 9.1 (8.4-10.2) mg/dL Total Bilirubin 2.7 H 3.6 H (0.2-1.3) mg/dL AST 21 19 (17-59) U/L ALT 21 18 (6-50) U/L Alkaline Phosphatase 35 L 32 L (38-126) U/L Total Protein 7.4 6.4 (6.3-8.2) g/dL Albumin 4.4 3.7 (3.5-5.1) g/dL All other labs normal. Imaging Additional studies: ITS Impressions Abdomen/Pelvis CT 07/28/24 16:16 IMPRESSION: Mild esophagitis/gastritis. Hepatosplenomegaly. Periportal edema. Enriqueta hepatis lymphadenopathy. Consider acute hepatitis in the differential. Correlate with liver labs and any history of trauma, or progressive fluid resuscitation. Other causes of portal edema such as CHF, cholangitis and pyelonephritis are considered less likely in a patient of this age and given the lack of associated CT abnormalities. Cholelithiasis, without CT evidence of cholecystitis. ADDENDUM: 07/28/242015 The impression contains a voice recognition error, progressive fluid resuscitation is corrected to, aggressive fluid resuscitation. Abdomen Ultrasound 07/28/24 19:32 IMPRESSION: Hepatomegaly. Cholelithiasis. Mild gallbladder wall thickening. No pericholecystic fluid or common bile duct dilation. Negative sonographic Acharya sign although this may be confounded by current pain medication use. Periportal hyperechogenicity, as can be seen with cholecystitis and inflammatory bowel disease. No CT findings of pneumobilia or recurrent pyogenic cholangitis which can also cause this finding. Consider schistosomiasis if there has been travel to endemic regions.
[2024-07-29 11:26] VITALS: BMI 25.7
--- NOTE | 2024-07-29 13:55 | PM.DS ---
DS: Admitting Diagnosis Discharge Date 07/29/2024 Admitting Diagnosis Abdominal pain DS: Discharge Diagnosis Discharge Diagnosis (1) Abdominal pain: Qualifiers: Abdominal location: right upper quadrant Qualified Code(s): R10.11 - Right upper quadrant pain Code(s): R10.9 - Unspecified abdominal pain Status: Acute (2) Hepatosplenomegaly: Code(s): R16.2 - Hepatomegaly with splenomegaly, not elsewhere classified Status: Acute (3) Cholelithiasis: Qualifiers: Biliary obstruction: without biliary obstruction Cholecystitis presence: without cholecystitis Cholelithiasis location: gallbladder Qualified Code(s): K80.20 - Calculus of gallbladder without cholecystitis without obstruction Code(s): K80.20 - Calculus of gallbladder without cholecystitis without obstruction Status: Acute (4) Esophagitis with gastritis: Code(s): K29.70 - Gastritis, unspecified, without bleeding; K20.90 - Esophagitis, unspecified without bleeding Status: Acute DS: Summary Hospital Course Reason for hospitalization: Abdominal pain Hospital Course: 18-year-old male with a past medical history of cholelithiasis and chronic cholecystitis who presented to the ER with right-sided abdominal pain started this morning. But he reports that the evening before onset of symptoms he had eaten pizza around 23:00. 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 Pain was initially sharp and stabbing. After he received pain medications in the ER he reports that the pain is more of an aching sensation. Pain seemed worsen with certain position changes. She he denies any fevers or chills. He has been having some nausea but no vomiting. He has had normal bowel movements. He has never had any abdominal surgeries. He reports that a year ago he was told he needed his gallbladder out but the surgeon at [facility] would not remove his gallbladder because the patient had never been vaccinated against COVID. He denies having history of prior HIDA scan. In the ER CT was performed which demonstrated hepatosplenomegaly periportal edema and lymphadenopathy at the katina S hepatis as well as cholelithiasis. Patient had minimal elevation in his bilirubin and is transaminases were otherwise normal. He denies any recent travel, history of liver disease, easy bruising or bleeding, high risk sexual activity or blood transfusions. He has not had any fevers or chills. He denies any recent weight loss. He has been having somewhat frequent nausea that he has associated with his history of chronic gallbladder issues for which he has been taking Zofran at home. Although cirrhosis is listed under the family medical history per nursing report the patient denied family history of cirrhosis or liver disease at the time of my evaluation. He told nursing staff that an uncle had cirrhosis. He does not know his father's family history. He also denied family history of lymphoma or leukemia. He denies any recent alcohol use and has not drink in 2 or 3 weeks. He will drink anywhere between a couple of drinks once a month up to a pint once a month. Gastroenterology and General surgery consulted regarding abdominal pain and possible cholelithiasis. GI in agreement that patient's presentation of symptoms strongly indicates need for surgical consultation/intervention with possible laparoscopic cholecystectomy. CT scan findings revealed periportal edema with lymphadenopathy in the katina hepatis, although these findings could be artifact on imaging, patient will likely benefit from exploration during surgical intervention. General surgery consulted for cholelithiasis with chronic cholecystitis, agree that surgical intervention would be most prudent in this situation, however the patient wishes to do this procedure as an outpatient so he can ?get things in order. General surgery was agreeable to this procedure being performed in the outpatient setting. In the a.m. 9, patient's symptoms improved greatly to the point were he had no nausea, episodes of emesis, or abdominal pain at rest. Upon palpitation of abdomen, patient did have a dull ache in the right lower quadrant, but otherwise no pain or complaints. No urinary/bowel changes. Patient was able eat a full diet for lunch on 07/29 even going as far as a that he is still hungry, and per General surgery recommendations, patient can be cleared for discharge home with prompt follow-up with surgery on Monday 07/31. Discussed the possibility of Gilbert syndrome the patient and stressed the importance of following up in the outpatient setting his primary care physician. Status at Discharge Functional status at discharge: independent ambulation Overall status at discharge: patient is back to baseline Time Spent with Patient Time attestation: Total time spent providing and/or coordinating discharge services:34 Exam Narrative: Weight 86 kg BMI 25.7 Const: Other: No acute distress, well-developed well-nourished HENMT: Other: Mucous membranes are tacky, no oral pharyngeal erythema Eyes: Other: Pupils are equal and reactive, no scleral icterus, no conjunctival pallor Neck: Other: No JVD, no lymphadenopathy Resp: Other: Clear to auscultation bilaterally, no increased work of breathing Cardio: Other: Regular rate, regular rhythm, 2+ bilateral radial pedal pulses GI: Other: Soft, nondistended, normoactive bowel sounds, hepatomegaly, mild right upper quadrant discomfort to palpation, no significant epigastric tenderness no obvious splenomegaly on palpation. Abdominal pain has downgraded to ache even with deep palpation. Skin: Other: No jaundice, no pallor, petechiae of the left upper arm where blood pressure cuff rested Neuro: Other: Alert orient x4, speech is clear, no facial asymmetry Extrem: Other: No clubbing, cyanosis or edema Psych: Other: Appropriate mood and affect, pleasant and cooperative, judgment and insight intact DS: Data Data Completed and Pending Labs on day of discharge: Labs from last 24 hours 07/29/24 07/29/24 07/29/24 04:37 04:36 04:32 WBC 6.5 RBC 4.80 Hgb 14.4 Hct 43.0 MCV 89.6 MCH 30.0 MCHC 33.5 RDW 12.5 Plt Count 182 MPV 8.3 Immature Gran % (Auto) 0.3 Neut % (Auto) 49.3 Lymph % (Auto) 39.4 [place] % (Auto) 9.3 H Eos % (Auto) 1.2 Baso % (Auto) 0.5 Lymph # (Auto) 2.57 [place] # (Auto) 0.6 Eos # (Auto) 0.1 Baso # (Auto) 0.0 Abs Immat Gran (auto) 0.02 Absolute Neuts (auto) 3.2 Absolute Nucleated RBC 0.000 Nucleated RBC % 0.0 Absolute Retic Percent Retic Immature Retic Fraction Retic Hgb Content Haptoglobin PT 16.6 H INR 1.3 APTT 30.1 Sodium 140 Potassium 3.4 Chloride 107 Carbon Dioxide 26 Anion Gap 7 BUN 9 Creatinine 0.84 Estim Creat Clear Calc 135 Estimated GFR > 60 Glucose 87 Calcium 9.1 Ferritin 73.90 Total Bilirubin 3.6 H Indirect Bilirubin 3.1 H AST 19 ALT 18 Alkaline Phosphatase 32 L Lactate Dehydrogenase 106 L 113 L Total Protein 6.4 Albumin 3.7 Ceruloplasmin Lipase Urine Color Urine Appearance Urine pH Ur Specific [place] Urine Protein Urine Glucose (UA) Urine Ketones Ur Blood (Man) Urine Nitrate Urine Bilirubin Urine Urobilinogen Leukocyte Esterase Rfl CMV IgM Ab Hepatitis A IgM Ab Hep Bs Antigen Hep B Core IgM Ab Hepatitis C Ab Screen Monoscreen HIV 1&2 Ab/P24 Ag 4thGn Negative 07/29/24 07/28/24 07/28/24 04:23 20:00 15:19 WBC RBC Hgb Hct MCV MCH MCHC RDW Plt Count MPV Immature Gran % (Auto) Neut % (Auto) Lymph % (Auto) [place] % (Auto) Eos % (Auto) Baso % (Auto) Lymph # (Auto) [place] # (Auto) Eos # (Auto) Baso # (Auto) Abs Immat Gran (auto) Absolute Neuts (auto) Absolute Nucleated RBC Nucleated RBC % Absolute Retic 0.04 Percent Retic 0.88 Immature Retic Fraction 3.8 Retic Hgb Content 34.8 Haptoglobin Pending PT INR APTT Sodium Potassium Chloride Carbon Dioxide Anion Gap BUN Creatinine Estim Creat Clear Calc Estimated GFR Glucose Calcium Ferritin Total Bilirubin Indirect Bilirubin AST ALT Alkaline Phosphatase Lactate Dehydrogenase Total Protein Albumin Ceruloplasmin Pending Lipase Urine Color Yellow Urine Appearance Clear Urine pH 6.5 Ur Specific [place] 1.021 Urine Protein Negative Urine Glucose (UA) Negative Urine Ketones 1+ H Ur Blood (Man) Negative Urine Nitrate Negative Urine Bilirubin Negative Urine Urobilinogen 1.0 Leukocyte Esterase Rfl Negative CMV IgM Ab Pending Hepatitis A IgM Ab Hep Bs Antigen Hep B Core IgM Ab Hepatitis C Ab Screen Monoscreen Negative HIV 1&2 Ab/P24 Ag 4thGn 07/28/24 14:48 WBC 6.8 RBC 5.02 Hgb 15.0 Hct 44.0 MCV 87.6 MCH 29.9 MCHC 34.1 RDW 12.5 Plt Count 195 MPV 8.0 Immature Gran % (Auto) 0.3 Neut % (Auto) 68.1 Lymph % (Auto) 22.4 [place]ledso[place] % (Auto) 8.4 Eos % (Auto) 0.4 Baso % (Auto) 0.4 Lymph # (Auto) 1.51 [place] # (Auto) 0.6 Eos # (Auto) 0.0 Baso # (Auto) 0.0 Abs Immat Gran (auto) 0.02 Absolute Neuts (auto) 4.6 Absolute Nucleated RBC 0.000 Nucleated RBC % 0.0 Absolute Retic Percent Retic Immature Retic Fraction Retic Hgb Content Haptoglobin PT INR APTT Sodium 139 Potassium 3.8 Chloride 105 Carbon Dioxide 28 Anion Gap 6 BUN 11 Creatinine 0.78 Estim Creat Clear Calc 144 Estimated GFR > 60 Glucose 102 Calcium 9.7 Ferritin Total Bilirubin 2.7 H Indirect Bilirubin AST 21 ALT 21 Alkaline Phosphatase 35 L Lactate Dehydrogenase Total Protein 7.4 Albumin 4.4 Ceruloplasmin Lipase 97 Urine Color Urine Appearance Urine pH Ur Specific [place] Urine Protein Urine Glucose (UA) Urine Ketones Ur Blood (Man) Urine Nitrate Urine Bilirubin Urine Urobilinogen Leukocyte Esterase Rfl CMV IgM Ab Hepatitis A IgM Ab Negative Hep Bs Antigen Negative Hep B Core IgM Ab Negative Hepatitis C Ab Screen Negative Monoscreen HIV 1&2 Ab/P24 Ag 4thGn Discharge Plan Discharge Attending physician on discharge: Gen Lind Consulting providers: Jose Cespedes; Justin Rodriguez; Glenna Low Discharging Clinician: Justin Rodriguez Anticipated Discharge Date/Time: 07/29/24 13:54 Patient Disposition: Home Activity: as tolerated Diet: as tolerated Discharge Instructions: Discharge disposition: Stable Take medications as prescribed Monitor blood pressures Take caution while standing, rising, or moving Change positions slowly taking a break between each position change If you standing feel dizzy sit back down and take a break Encouraged to continue with yearly vaccinations Return to the emergency department if he developed sudden shortness of breath, chest pain, nausea, vomiting, upset stomach or intractable diarrhea Return to the emergency department if you develop fever greater than 101.5 Follow-up with the primary care physician within 1-2 weeks. Follow-up with your appointment on this Monday for further evaluation. Thank you for [facility] for your healthcare needs Patient Instructions: Antibiotic Form, Low Fat Diet (DC) Patient Language: Haitian Stand Alone Forms: General Discharge Information Follow-up/Referrals: Glenna Low MD [Physician] - PHYSICIAN,FREIGHT RATE ANALYST [Primary Care Provider] - Discharge Medications: Continued ondansetron HCl 4 mg tablet 4 mg PO Q6H PRN (Reason: nausea and vomiting) Date of admission: 07/28/24 19:56 Primary Care Provider: PHYSICIAN,FREIGHT RATE ANALYST Admitting Provider: Sharita Chiang Attending physician on admission: Hopen,Sharita J. Condition: Stable Quality VTE Prophylaxis VTE prophylaxis: pharmacologic ordered (Lovenox 40 mg subQ daily.)
[2024-07-29 13:59] VITALS: BP 127/56; PULSE 88; RESP 16; TEMP 36.4; O2SAT 99
[2024-07-30 12:59] LABS: Ceruloplasmin 16 mg/dL (14-30); Haptoglobin 97 mg/dL (43-212)
[2024-07-31 06:59] LABS: CMV IgM Antibody <30.00 AU/mL
== END 2024-07-29 14:27 | disposition home or self-care (01) ==
LOC: ANHED 19:43 → ANH2MED 07-29 06:48
PROVIDERS: Internal Medicine Gastroenterology; Admitting Provider Internal Medicine; Emergency Provider Emergency Medicine; Visit Provider Family Medicine
DX: R10.11 Right upper quadrant pain (principal); K80.20 Calculus of gallbladder without cholecystitis without obstruction; R16.2 Hepatomegaly with splenomegaly, not elsewhere classified; K20.90 Esophagitis, unspecified without bleeding; K29.70 Gastritis, unspecified, without bleeding; F17.210 Nicotine dependence, cigarettes, uncomplicated; F17.290 Nicotine dependence, other tobacco product, uncomplicated; F12.90 Cannabis use, unspecified, uncomplicated; L30.9 Dermatitis, unspecified; L70.9 Acne, unspecified; Z11.4 Encounter for screening for human immunodeficiency virus [HIV]; Z28.310 Unvaccinated for COVID-19; Z88.1 Allergy status to other antibiotic agents; Z88.2 Allergy status to sulfonamides; Z88.8 Allergy status to other drugs, medicaments and biological substances
CPT/HCPCS: 36415; 74177; 76705; 80053; 80074; 81003; 82390; 82728; 83010; 83615; 83690; 85025; 85046; 85610; 85730; 86308; 86645; 86703; 96372; 96374; 96375; 96376; 99285; A9270; G0378; G0432; J2270; J2405; J2470; J7030; Q9967

== ENCOUNTER 2024-08-09 10:43 | Outpatient (CLI) | payer OTHER, SELFPAY ==
[2024-08-09 11:23] LABS: Alanine Aminotransferase 21 U/L (6-50); Albumin Level 4.5 g/dL (3.5-5.1); Alkaline Phosphatase 32 U/L (38-126); Amylase 51 U/L (30-110); Aspartate Amino Transferase 22 U/L (17-59); Bilirubin,Total 2.1 mg/dL (0.2-1.3); Total Protein 7.5 g/dL (6.3-8.2)
== END 2024-08-09 10:44 | disposition home or self-care (01) ==
LOC: ANHSURGERY 10:48
PROVIDERS: Visit Provider Surgery
DX: K81.0 Acute cholecystitis (principal)
CPT/HCPCS: 36415; 80076; 82150; 86850; 86900; 86901

== ENCOUNTER 2024-08-12 00:33 | Day surgery (SDC) | payer OTHER, SELFPAY ==
[2024-08-08 15:10] VITALS: BMI 26.4
--- NOTE | 2024-08-08 15:16 | PC.NURSE ---
Report to the Outpatient Waiting Room, entrance under the green pavilion located off [facility], at time _1130_ on date _[id number]_. Planned Procedure Time: _130pm_.? Time changes happen often and if your time is changed the preop area will call you the afternoon before. - You and your visitor will be asked to self-screen and do not enter if you have any COVID symptoms. Please call surgeon if you need to reschedule. - A mask is optional within the hospital at this time. Patients may have clear liquids (water, carbonated beverages, clear teas, apple juice) until 3 hours prior to surgery with a maximum of 20 ounces. - No food from midnight until time of surgery and no smoking, or chewing tobacco (or any form of nicotine). No chewing gum, candy or mints. Take only the following medications with a SIP of water on the morning of surgery: ___Zofran if needed for nausea. DO NOT STOP ANY OF YOUR OTHER PRESCRIPTION MEDICATIONS PRIOR TO SURGERY EXCEPT THE FOLLOWING Hold all vitamins and supplements for 3 days per anesthesiologist. Medications to discontinue per physician Date to take last dose Please no make-up, nail persian, hairspray, perfume, deodorant, or body powder the day of surgery.? No jewelry (including any body piercings) or valuables the day of surgery, leave them at home.? Please take a shower or bath the night before, or the morning of, surgery with an antibacterial soap.? Wear comfortable, loose fitting clothing.? - Jewelry must be removed prior to entering the operating room.? Rings and piercings that are not removed may be cut off. - The hospital will not accept responsibility for valuables.? - Please leave all valuables, including medications, at home the day of surgery. If you are going home after surgery, a licensed commercial driver's license driver must drive you home.? - NO public transportation without another adult if you receive anesthesia. - We recommend that an adult stay with you for 24 hours following discharge. - We also recommend that you do not drive, make important decision, drink alcoholic beverages, or take any drugs that were not prescribed by your health care provider for at least 24 hours after your discharge time. Follow any additional instructions given to you from your surgeon. Telephone instructions given to __Star___and asked if any additional questions and then verbalized understanding. Patient advised to call surgeon office or pre surgery nurse liaison [phone] if any additional questions.
[2024-08-12] VITALS (13 sets, daily range): BP systolic 108–143; BP diastolic 52–97; PULSE 45–100; RESP 12–22; TEMP 36.3–36.6; O2SAT 92–100
--- NOTE | 2024-08-12 08:43 | WPDHPUPDATE1 ---
History and Physical Update Update Date/Time: 08/12/24 08:43 History and Physical has been reviewed, including an updated exam of the patient. There are NO changes in the patient's condition. Risks, benefits, and alternatives have been discussed and questions answered. Patient agrees to proceed with procedure.
--- NOTE | 2024-08-12 10:46 | P.PNAN_ITS ---
Anes - Initial Pre Proc Eval Procedure: Operation Date: 08/12/24 13:30 Proposed Procedures p Robotic Laparoscopic Cholecystectomy - Glenna Low MD Date/Time: 08/12/24 10:46 Surgeon: Glenna Low MD Pre Op Diagnosis: Acute Cholecystitis Patient Data Age: 18 Gender: M Height: 1.83 m Weight: 88.6 kg Allergies Allergy/AdvReac Type Severity Reaction Status Date / Time amoxicillin Allergy Severe Throat Verified 08/08/24 15:09 swelling and rash sulfamethoxazole Allergy Unknown convulsions Verified 08/08/24 15:09 trimethoprim Allergy Unknown convulsions Verified 08/08/24 15:09 Home Medications ?Medication ?Instructions ?Recorded ?Confirmed ?Type ondansetron HCl 4 mg tablet 4 mg PO Q6H PRN nausea and vomiting 07/28/24 08/08/24 History Patient hx anesthesia problems: none Family hx anesthesia problems: none Results Review: All pre-operative results and documents have been reviewed as part of the pre- operative evaluation. [facility], [facility] Past Medical History Medical History Eczema Acne Surgical History Surgical History No history of previous surgery Family History Family History Mother Diabetes mellitus CHF (congestive heart failure) Hypertension COPD (chronic obstructive pulmonary disease) Breast cancer Other Cirrhosis of liver Degenerative disc disease Social History Social History (Updated 08/12/24 @ 11:04 by Andrea Werner DO) Social History: Patient recently moved back in with his mother. He works in [employer]. He drinks alcohol about once a month and he can drink anywhere from 2-3 drinks up to a pint when he does drink. He has not drink alcohol in 2 or 3 weeks. He smokes cigarettes on the weekends and the the rest of time he vapes. He reports that he vapes almost constantly. He started vaping at age 16. He denies illicit substance use. Code status: Full code Surrogate decision maker: Mother Smoking status: Current every day smoker Tobacco type: e-cigarettes/vaping Alcohol intake: current Drinks per week: 1 Substance use: current Substance use type: marijuana Other substance usage details: daily Do You Feel Safe in your Home?: Yes Lack of Transportation: No Lack of Food: Never True Current Housing: I Have Housing Concerned About Future Housing: No Difficulty Paying Gas/Electric Bills: No Difficulty Paying for Meds: No Currently Unemployed: No Education: High School Diploma/GED Difficulty w/ Childcare or Family Care: No Living arrangements: with family Occupation/Education: student Gender identity (if verbalized by the patient): Male Spiritual care concerns: No Anes - Eval Final PreProcedure Day of Procedure 08/12/24 10:46 Patient weight: overweight Heart: regular rate and rhythm Lungs: clear to auscultation Airway: Mallampati scale class II Neurological: alert and oriented Last oral intake: >/= 8 hours ASA classification: III Emergent: no Anesthetic plan: proceed Anesthesia type and monitoring: general ETT and standard monitoring Results Review: All pre-operative results and documents have been reviewed as part of the pre- operative evaluation. Informed Consent: The patient's anesthetic plan and its attendant risks and benefits were discussed with the patient/family/POA. Questions were solicited and answers provided to the satisfaction of the patient/family/POA.
[2024-08-12] MEDS: INDOCYANINE GREEN 25 MG VIAL WITH DILUENT 3.75 MG IV PUSH (11:00)
[2024-08-12] MEDS: LACTATED RINGERS 1,000 ML 30 ML IV CONT ×3 (11:00→13:51)
[2024-08-12] MEDS: KETOROLAC 15 MG/ML VIAL (*BKC) IV PUSH (11:00)
[2024-08-12] MEDS: ceFAZolin 2 GM/D5W 50 ML 2 GM/50 ML BAG IVPB (11:14)
[2024-08-12] MEDS: ACETAMINOPHEN 500 MG TABLET 1000 MG PO (11:15)
[2024-08-12] MEDS: BUPIVACAINE/EPINEPHRINE 0.5% 50 ML VIAL 30 ML INFILTRATE (11:33)
--- NOTE | 2024-08-12 11:52 | S_PTH ---
PATIENT: Star Devi II LOC: [facility] U#:[id number] AGE/SX: 18/M ROOM: RE08/12/[address]: Glnena Low MD : 2005 BED: DIS: 08/12/2024 SPEC #: [id number] RECD: 08/12/24 13:24 STATUS: CARLA REMiguel #: [id number] NITA: 08/12/24 11:[address]: Glenna Low DEPT: [facility] Surgical RECD BY: Mirtha Cedeño ENTERED: 08/12/24 13:24 SP TYPE: Surgical OTHR DR: PAYMENT REP PHYSICIAN Tissues: A - Gallbladder Procedures: Hematoxylin and Eosin Stain Gross and Microscopic Level 3
--- NOTE | 2024-08-12 13:00 | P.OP_ITS ---
Procedure Note - Detailed Date of Procedure 08/12/24 Pre-op Diagnosis Acute Cholecystitis, cholelithiasis Post-op Diagnosis Same Procedure Performed Robotic assisted cholecystectomy Surgeon Glenna Low MD Anesthesia General Indications 18-year-old male presenting with upper abdominal pain, nausea, bloating. Workup, including imaging, suggestive of cholecystitis, cholelithiasis. Findings Cholecystitis with cholelithiasis Description of Procedure The patient was taken to the operating room and placed in the supine position. After adequate induction of general anesthesia, the patient was prepped and dr aped in the normal sterile fashion. A time-out was then done to verify the patient's identity, as well as the procedure being performed. I began by making a 8 mm incision in the periumbilical region. A Veress needle was then placed in the peritoneal cavity and CO2 gas was insufflated. After adequate pneumoperitoneum was achieved, the Veress needle was removed and a 8 mm Optiview trocar was placed under direct visualization. Once into the abdominal cavity, the introducer was removed and the laparoscope was placed through this trocar site. Under direct visualization, I placed a further 8 mm port in the left mid abdomen and 2 additional 8 mm ports in the right mid abdomen. The robot was then docked to these ports sites. I then went to the console. The gallbladder was then identified and noted to be inflamed, distended, full of large gallstones. I was able to place a grasper at the dome of the gallbladder and this was retracted up and over the liver. A 2nd retractor was used to grasp the infundibulum and retracted laterally. This allowed visualization and dissection of the triangle of Calot. There were some omental adhesions to the gallbladder and these were taken down with the cautery. I then began dissection around the triangle Calot. I first identified the cystic duct, I was able to visualize the entirety of the duct from its proximal insertion into the gallbladder to its distal junction with the common hepatic/common bile duct junction. I then used the firefly visualization at this point to confirm the anatomy. The proximal cystic duct was then further skeletonized, clipped, and transected. Next I visualized the cystic artery. Again the structure was skeletonized, clipped, and transected. I then again used firefly to confirm anatomy and no aberrant a natomy was noted. I then used the Bovie cautery to take down the peritoneal attachments of the gallbladder off the liver bed. Once the gallbladder specimen was completely detached, an Endo pouch was placed through the left 8 mm port site and the gallbladder specimen was placed in the endo-pouch and subsequently removed. Of note, I made a cholecystostomy and decompressed the gallbladder to facilitate removal. Also given the large size of the stones the incision needed to be extended to allow removal. I then re-examined the right upper quadrant. Hemostasis was noted in the liver bed and the clips were noted to be in good position on both the duct and the artery. No other pathology was seen in the right upper quadrant. All instruments were then removed and the robot was undocked. We did close the extraction site with a 0 Vicryl suture at the fascial level. The abdomen was then desufflated and all ports were removed. All port sites were then closed with 4-0 Monocryl subcuticular suture. Dermabond was placed on each was wound. The patient tolerated the procedure well and was extubated in the operating room postop. The patient will now be transferred to the recovery room in stable condition. Estimated Blood Loss 5 Drains No Packing No Pathology Yes Complications No immediate complications Condition Stable Disposition PACU [facility] Billing Surgery - Charge Forward: Surgery Billing
[2024-08-12] MEDS: MIDAZOLAM HCL (*CRX) 2 MG/2 ML VIAL IV PUSH (13:16)
[2024-08-12] MEDS: fentaNYL CITRATE INJ (*CRX) 100 MCG/2 ML VIAL 25 MCG IV PUSH ×2 (13:19→13:54)
--- NOTE | 2024-08-12 13:31 | SUR.PHASEI ---
1315 PT REACTIVE, ORAL AIRWAY REMOVED, PT BEGAN THRASHING ABOUT ON THE STRETCHER, 4 STAFF MEMBERS PRESENT TO KEEP PT ON STRETCHER AND PREVENT INJURY. 1320 PT MEDICATED PER ANESTHESIA WITH PROPOFAL 1330 PT RESTING QUIETLY, CHIN LIFT BEING DONE, NASAL AIRWAY INSERTED TO RIGHT NARE, PT MAINTAINING SATS AND RESP WITH NASAL AIRWAY IN PLACE
[2024-08-12] MEDS: oxyCODONE HCL (*CRX) 5 MG TAB IR PO (15:08)
== END 2024-08-12 16:15 | disposition home or self-care (01) ==
PROVIDERS: Visit Provider Surgery
PROC: 0FT44ZZ Resection of Gallbladder, Percutaneous Endoscopic Approach (ICD-10-PCS; CPT 47562; principal; 2024-08-12 13:30)
DX: K80.10 Calculus of gallbladder with chronic cholecystitis without obstruction (principal); F17.290 Nicotine dependence, other tobacco product, uncomplicated; F12.90 Cannabis use, unspecified, uncomplicated
CPT/HCPCS: 47562; 88304; A9270; J0690; J1100; J1885; J2003; J2250; J2405; J2704; J3010; J7030; J7120

== ENCOUNTER 2024-08-13 04:31 | Emergency (ER) | payer OTHER, SELFPAY ==
[2024-08-13] VITALS (11 sets, daily range): BP systolic 119–142; BP diastolic 63–88; PULSE 44–65; RESP 12–20; TEMP 36.4; O2SAT 96–100
--- NOTE | ~2024-08-13 | NM_ITS ---
EXAMINATION: NM hepatobiliary wo pharm DATE: 08/13/2024 11:31 INDICATION: Evaluate for bile leak COMPARISON: None. TECHNIQUE: 4.7 mCi Tc-99m mebrofenin (Choletec) was administered intravenously. Scintigraphic images of the abdomen were obtained for one hour. FINDINGS: There is normal clearance of radiotracer from the blood pool. There is homogeneous tracer u ptake by the liver. Activity progresses to the common bile duct by 15 minutes and small bowel by 20 minutes. There is progressive accumulation of bowel activity over the subsequent 40 minutes of imagin g with no evident bile leak. IMPRESSION: 1. Normal hepatobiliary scan post cholecystectomy with no evident bile leak. Reviewed, dictated and finalized at location A.
--- NOTE | ~2024-08-13 | CT_ITS ---
CT of the Abdomen and Pelvis: Indication: Postoperative pain, one day status post cholecystectomy Technique: 2.5 mm axial scans were obtained through the abdomen and pelvis following intravenous adm inistration of 100 cc of Omnipaque 350. Dose reduction technique was used on this scan by utilizing a utomated exposure control and iterative reconstruction technique. The dose-length product (DLP) was 1 141.28 mGy-cm. COMPARISON: 07/28/2024 Findings: Scans through the lung bases are unremarkable. There is mild periportal edema. Status post recent cholecystectomy. There is fluid in the gallbladder fossa extending to the infrahepatic region. The spleen, pancreas, adrenals and kidneys are within no rmal limits. No evidence of aortic aneurysm. No lymphadenopathy. No bowel obstruction or bowel wall thickening. Small amount of pneumoperitoneum present. There is als o soft tissue gas scattered in the anterior subcutaneous soft tissues.. Images through the pelvis were performed. Urinary bladder unremarkable. Small amount of pelvic ascite s present. No pelvic mass identified. Impression: Status post cholecystectomy with fluid in the gallbladder fossa extending to the infrahepatic region. This could reflect normal postoperative change, however bile leak or phlegmon are not excluded. No d efinite mature, peripherally enhancing abscess identified. Correlate clinically. Consider HIDA scan i f there is concern for bile leak. Small amount of pneumoperitoneum and anterior subcutaneous soft tissue gas are compatible with sequel a of recent surgery. Reviewed, dictated and finalized at [facility]. Impression: Status post cholecystectomy with fluid in the gallbladder fossa extending to th e infrahepatic region. This could reflect normal postoperative change, however bile leak or phlegmon are not excluded. No definite mature, peripherally enhanc ing abscess identified. Correlate clinically. Consider HIDA scan if there is co ncern for bile leak. Small amount of pneumoperitoneum and anterior subcutaneous soft tissue gas are compatible with sequela of recent surgery.
[2024-08-13 05:57] LABS: Basophils Percent Auto 0.2 % (0.2-1.2); Eosinophils Percent Auto 0.3 % (0-4.4); Hemoglobin 15.2 g/dL (14.0-18.0); Immature Granulocyte Absolute 0.08 K/mm3 (0.00-0.031); Immature Granulocyte Percent A 0.6 % (0-0.5); Mean Corpuscular HGB Conc 33.8 g/dl (32-36); Mean Corpuscular Hemoglobin 30.1 pg (26-34); Mean Corpuscular Volume 89.1 fl (80-100); Mean Platelet Volume 8.6 fl (7.4-10.4); Monocytes Absolute Auto 1.3 K/mm3 (0.1-0.6); Monocytes Percent Auto 9.8 % (2.6-8.5); Neutrophils Absolute Auto 9.8 K/mm3 (1.3-6.7); Neutrophils Percent Auto 74.1 % (45.5-73.1); Platelet Count Result 235 k/mm3 (150-375); Red Blood Count 5.05 M/mm3 (4.6-6.20); White Blood Count 13.3 K/mm3 (4.5-10.0)
[2024-08-13 06:08] LABS: Lactic Acid Reflex 0.9 mmol/L (0.7-2.0)
[2024-08-13 06:09] LABS: Alanine Aminotransferase 24 U/L (6-50); Albumin Level 4.3 g/dL (3.5-5.1); Alkaline Phosphatase 33 U/L (38-126); Anion Gap 8 mmol/L (4-12); Aspartate Amino Transferase 29 U/L (17-59); Bilirubin,Total 2.1 mg/dL (0.2-1.3); Blood Urea Nitrogen 10 mg/dL (9-20); Calcium 9.6 mg/dL (8.4-10.2); Carbon Dioxide 26 mmol/L (22-30); Chloride 107 mmol/L (98-107); Estimated CRCL calculation 146 ml/min; Estimated Glomerular Filt Rate > 60; Glucose 99 mg/dL (65-110); INR 1.2; Lipase 76 U/L (23-300); Prothrombin Time 14.9 Seconds (11.1-14.7); Sodium 141 mmol/L (137-145); Total Protein 7.3 g/dL (6.3-8.2)
[2024-08-13 07:17] LABS: Add Urine Microscopic? NO; Appearance Urine Clear (Clear); Bilirubin Urine Negative (Negative); Blood Urine Negative (Negative); Color Urine Yellow (Yellow); Glucose Urine UA Negative (Negative); Ketones Urine Negative (Negative); Leukocyte Esterase Ur Negative LEU/UL (Negative); Nitrate Urine Negative (Negative); Protein Urine Negative (Negative); Specific Grav Ur > 1.045 (1.001-1.035); Urobilinogen Urine 0.2 mg/dL (<2.0); pH Urine 5.5 (5.0-9.0)
[2024-08-13] MEDS: ONDANSETRON INJ 4 MG/2 ML VIAL IV PUSH (07:21)
[2024-08-13] MEDS: SODIUM CHLORIDE 0.9% IV 1,000 ML 999 ML IV CONT (07:23)
[2024-08-13] MEDS: HYDROmorphone HCL INJ (*CRX) 2 MG/ML VIAL 1 MG IV PUSH (07:34)
--- NOTE | 2024-08-13 07:37 | PC.NURSE ---
Pt at first refused Hydromorphone due to parental history of problems with it. Consulted with Dr Bellamy and informed to give 1/2 dose. When pt was informed, pt decided he will try the whole dose.
--- NOTE | 2024-08-13 07:53 | ED_ITS ---
HPI - Abdominal Pain General Chief Complaint: Abdominal Pain Stated Complaint: abd pain Time Seen by Provider: 08/13/24 06:59 History of Present Illness HPI narrative: Patient is a 18-year-old male who presents ER with abdominal pain. Diffuse but worse in lower abdomen. Ongoing for last 7 hours. Hurts with any movement. He is 1 day postop from a laparoscopic cholecystectomy. No fevers or chills or sweats. He has not had a bowel movement. No alleviating factors for his discomfort. Related Data Home Medications ?Medication ?Instructions ?Recorded ?Confirmed ?Last Taken ?Type ondansetron HCl 4 mg tablet 4 mg PO Q6H PRN nausea and vomiting 07/28/24 08/08/24 07/28/24 History Allergies Allergy/AdvReac Type Severity Reaction Status Date / Time amoxicillin Allergy Severe Throat Verified 08/12/24 11:11 swelling and rash sulfamethoxazole Allergy Unknown convulsions Verified 08/12/24 11:11 trimethoprim Allergy Unknown convulsions Verified 08/12/24 11:11 Review of Systems 2 Review of Systems: All systems reviewed & are unremarkable except as noted in HPI and below Constitutional: Constitutional: Reports no additional constitutional complaints Cardiovascular: Cardiovascular: Reports no additional cardiovascular complaints Respiratory: Respiratory: Reports no additional respiratory complaints Gastrointestinal: Gastrointestinal: Reports no additional gastrointestinal complaints Genitourinary: Genitourinary: Reports no additional male genitourinary complaints [facility] Past Medical History Medical History Eczema Acne Surgical History Surgical History No history of previous surgery Family History Family History Mother Diabetes mellitus CHF (congestive heart failure) Hypertension COPD (chronic obstructive pulmonary disease) Breast cancer Other Cirrhosis of liver Degenerative disc disease Social History Social History (Updated 08/12/24 @ 11:04 by Andrea Werner DO) Social History: Patient recently moved back in with his mother. He works in [employer]. He drinks alcohol about once a month and he can drink anywhere from 2-3 drinks up to a pint when he does drink. He has not drink alcohol in 2 or 3 weeks. He smokes cigarettes on the weekends and the the rest of time he vapes. He reports that he vapes almost constantly. He started vaping at age 16. He denies illicit substance use. Code status: Full code Surrogate decision maker: Mother Smoking status: Current every day smoker Tobacco type: e-cigarettes/vaping Alcohol intake: current Drinks per week: 1 Substance use: current Substance use type: marijuana Other substance usage details: daily Do You Feel Safe in your Home?: Yes Lack of Transportation: No Lack of Food: Never True Current Housing: I Have Housing Concerned About Future Housing: No Difficulty Paying Gas/Electric Bills: No Difficulty Paying for Meds: No Currently Unemployed: No Education: High School Diploma/GED Difficulty w/ Childcare or Family Care: No Living arrangements: with family Occupation/Education: student Gender identity (if verbalized by the patient): Male Spiritual care concerns: No Exam 2 Narrative: GENERAL: Well-appearing, well-nourished, and in no acute distress. HEAD: Normocephalic, atraumatic. ENT: Mucous membranes moist. NECK: Supple. CHEST: Clear to auscultation. No respiratory distress. HEART: Regular rate and rhythm. Normal peripheral pulses. ABDOMEN: diffusely tender and voluntary guarding, nondistended. EXTREMITIES: Normal range of motion. No edema. SKIN: Warm, dry, no rash. NEURO: Alert and oriented x3. PSYCH: Normal mood and affect. Course Course Emergency Course: Patient has had a couple doses of pain medication for his discomfort. He still has discomfort on exam. White count mildly elevated at 13,[address] scan with possible normal postoperative changes in the upper abdomen but cannot rule out bile leak early infection. HIDA scan without bile leak. Patient would like to try to go home and treat his discomfort there. Surgery contacted and comfortable with this plan. Patient was offered hospitalization for pain control but declines. Vital Signs Vital signs: Vital Signs Temperature 97.6 F 08/13/24 04:39 Pulse Rate 53 L 08/13/24 04:39 Respiratory Rate 20 08/13/24 04:39 Blood Pressure 119/68 08/13/24 04:39 Pulse Oximetry 100 08/13/24 04:39 Oxygen Delivery Room Air 08/13/24 04:39 Temperature 97.6 F 08/13/24 04:39 Pulse Rate 58 L 08/13/24 12:50 Respiratory Rate 16 08/13/24 12:50 Blood Pressure 139/77 08/13/24 12:50 Pulse Oximetry 100 08/13/24 12:50 Oxygen Delivery Room Air 08/13/24 04:39 MDM - Abdominal Pain Lab Data 08/13/24 05:50 08/13/24 05:50 Labs: Lab Results 08/13/24 08/13/24 Range/Units 05:50 07:01 WBC 13.3 H (4.5-10.0) K/mm3 RBC 5.05 (4.6-6.20) M/mm3 Hgb 15.2 (14.0-18.0) g/dL Hct 45.0 (42.0-52.0) % MCV 89.1 (80-100) fl MCH 30.1 (26-34) pg MCHC 33.8 (32-36) g/dl RDW 13.0 (11.5-14.5) % Plt Count 235 (150-375) k/mm3 MPV 8.6 (7.4-10.4) fl Immature Gran % (Auto) 0.6 H (0-0.5) % Neut % (Auto) 74.1 H (45.5-73.1) % Lymph % (Auto) 15.0 L (18.3-44.2) % [place] % (Auto) 9.8 H (2.6-8.5) % Eos % (Auto) 0.3 (0-4.4) % Baso % (Auto) 0.2 (0.2-1.2) % Lymph # (Auto) 2.00 (0.9-3.2) K/mm3 [place] # (Auto) 1.3 H (0.1-0.6) K/mm3 Eos # (Auto) 0.0 (0-0.3) K/mm3 Baso # (Auto) 0.0 (0.0-0.1) K/mm3 Abs Immat Gran (auto) 0.08 H (0.00-0.031) K/mm3 Absolute Neuts (auto) 9.8 H (1.3-6.7) K/mm3 Absolute Nucleated RBC 0.000 (0.0-0.012) K/mm3 Nucleated RBC % 0.0 (0.0-0.2) % PT 14.9 H (11.1-14.7) Seconds INR 1.2 APTT 25.0 (22.3-36.8) Seconds Sodium 141 (137-145) mmol/L Potassium 4.0 (3.4-5.0) mmol/L Chloride 107 (98-107) mmol/L Carbon Dioxide 26 (22-30) mmol/L Anion Gap 8 (4-12) mmol/L BUN 10 (9-20) mg/dL Creatinine 0.77 (0.7-1.3) mg/dL Estim Creat Clear Calc 146 ml/min Estimated GFR > 60 (59 - ) Glucose 99 (65-110) mg/dL Lactic Acid 0.9 (0.7-2.0) mmol/L Calcium 9.6 (8.4-10.2) mg/dL Total Bilirubin 2.1 H (0.2-1.3) mg/dL AST 29 (17-59) U/L ALT 24 (6-50) U/L Alkaline Phosphatase 33 L (38-126) U/L Total Protein 7.3 (6.3-8.2) g/dL Albumin 4.3 (3.5-5.1) g/dL Lipase 76 (23-300) U/L Urine Color Yellow (Yellow) Urine Appearance Clear (Clear) Urine pH 5.5 (5.0-9.0) Ur Specific [place] > 1.045 H (1.001-1.035) Urine Protein Negative (Negative) mg/dL Urine Glucose (UA) Negative (Negative) mg/dL Urine Ketones Negative (Negative) mg/dL Ur Blood (Man) Negative (Negative) Urine Nitrate Negative (Negative) Urine Bilirubin Negative (Negative) Urine Urobilinogen 0.2 (<2.0) mg/dL Leukocyte Esterase Rfl Negative (Negative) DIETER/UL Imaging Data Radiologist's impression: ITS Impressions Abdomen/Pelvis CT 08/13/24 06:41 Impression: Status post cholecystectomy with fluid in the gallbladder fossa extending to the infrahepatic region. This could reflect normal postoperative change, however bile leak or phlegmon are not excluded. No definite mature, peripherally enhancing abscess identified. Correlate clinically. Consider HIDA scan if there is concern for bile leak. Small amount of pneumoperitoneum and anterior subcutaneous soft tissue gas are compatible with sequela of recent surgery. Hepatobiliary Scan Nuclear Medicine 08/13/24 12:50 IMPRESSION: 1. Normal hepatobiliary scan post cholecystectomy with no evident bile leak. Discharge Plan Discharge Clinical Impression: Post-operative pain Patient Disposition: Home Condition: Stable Instructions: Abdominal Pain (ED) Additional Instructions: Return to the emergency department if you develop severe abdominal pain, severe nausea and vomiting to the point where you are unable to keep down fluids, if you develop chest pain or difficulty breathing, blood in your stool, dizziness or fainting, or if you develop any other new or concerning symptoms as these could be signs of more serious medical illness. Try to stay well hydrated. Return ER if your postop pain worsens and cannot be controlled with your home medication. Patient Language: [place] Prescriptions: No Action hydrocodone-acetaminophen 5-325 mg tablet 1 tablet PO Q6H PRN (Reason: pain) Qty: 20 0RF ondansetron HCl 4 mg tablet 4 mg PO Q6H PRN (Reason: nausea and vomiting) Follow-up/Referrals: Glenna Low MD [Physician] - 1 Week PHYSICIAN,TURBINE INSPECTOR [Primary Care Provider] -
--- NOTE | 2024-08-13 13:05 | PC.NURSE ---
Pt. c/o 09/[address] Bellamy notified.
[2024-08-13] MEDS: MORPHINE SULFATE (*CRX) 2 MG/ML INJ IV PUSH (13:22)
== END 2024-08-13 15:08 | disposition home or self-care (01) ==
PROVIDERS: Emergency Medicine; Emergency Provider Emergency Medicine
DX: G89.18 Other acute postprocedural pain (principal); R10.9 Unspecified abdominal pain; Z90.49 Acquired absence of other specified parts of digestive tract; F17.290 Nicotine dependence, other tobacco product, uncomplicated; F12.90 Cannabis use, unspecified, uncomplicated
CPT/HCPCS: 36415; 74177; 78226; 80053; 81003; 83605; 83690; 85025; 85610; 85730; 96361; 96374; 96375; 99284; A9537; J1171; J2270; J2405; J7030; Q9967

== ENCOUNTER 2024-08-31 17:28 | Emergency (ER) | payer OTHER, SELFPAY ==
--- NOTE | ~2024-08-31 | CT_ITS ---
CT abdomen pelvis w con Ordering provider: Jacky Day History: 18 years Male with . R sided abd pain. 2 wks post op néstor, bldy stool . Comparison: August 13, 2024 Technique: CT abdomen and pelvis with IV and without oral contrast. Automated exposure control and it erative reconstruction technique were employed. The dose-length product was 365.14 mGy-cm. 100 MLO Om nipaque 350 was given IV. Findings: VISUALIZED LOWER CHEST: Normal. UPPER ABDOMINAL ORGANS: Liver: Mild hepatomegaly. Gallbladder: Status post cholecystectomy. Spleen: Normal. Stomach/duodenum: Normal. Pancreas: Normal. Adrenals: Normal. Kidneys: Normal. PELVIC ORGANS: The bladder is normal. BOWEL AND MESENTERY: Colon: No evidence of diverticulitis. Fecal material is loaded in the colon. Normal appendix. Small Bowel: Normal. No obstruction. Peritoneum/mesentery: No free air or free fluid. No mesenteric lymphadenopathy. RETROPERITONEUM: Normal aorta. No retroperitoneal lymphadenopathy. MUSCULOSKELETAL: Superficial soft tissues: Fat stranding in the left anterior abdominal wall which may be postoperativ e. Inguinal lymph nodes enlargement is seen with the largest in the right side measuring 2.8 cm. The largest on the left measures 3.5 cm. Follow-up advised. Otherwise, The superficial soft tissues are n ormal. Bones: Normal spine. IMPRESSION: 1. No evidence of appendicitis, diverticulitis or intestinal obstruction. 2. Mild hepatomegaly. 3. Constipation. 4. Slightly enlarged inguinal lymph nodes. Reviewed, dictated and finalized at location A.
--- OUTSIDE RECORDS SUMMARY | 2024-08-31 17:31 | XMS_ITS | Clinical Summary ---
Author Organization [facility] Address [address] [place] [address] Care Team Providers Care Floors Buffer Name Role Phone Jackson Boothe MD Primary Care Provider [phone] Source Comments [facility],non-owned Affiliates and Associated Physician Practices is amultiple site organization consisting of ambulatory clinics and hospital sitesin [place], [place], [place] and [place]. This disclosure is being madepursuant to the Care Everywhere program and may not contain all information available regarding this patient. Last updated 17.[facility] Allergies No known active allergies Medications * [...] on file Legal Sex Male 6:59 AM K 12 PRINCIPAL Gender Identity Not on file Sexual Orientation [...] season) 2023 DEPRESSION SCREENING 02/21/2024 INFLUENZA VACCINE (#1) 2024 ZOSTER VACCINE (1 of 2) 12/21/2053 HIB VACCINE Aged Out No longer eligi ble based on patient's age to complete this topic MENINGOCOCCAL GROUPS A/C/Y/W VACCINE Aged Out No longer eligible b ased on patient's age to complete this topic PNEUMOCOCCAL VACCINE Aged Out No long er eligible based on patient's age to complete this topic Insurance SELF PAY NO INSURANCE Member Subscriber Plan / Payer (Ef fective for All Dates) Name:Star Kirk II Member ID:Not on file Relation to Subscriber:Not on file Name:STAR KIRK Subscriber ID:Not on file (Home) Address: [address] [place] [address] Payer ID:Not on file Group ID:Not on file Type:Self Pay Address: [facility] Address: [facility] [id number] [id number] MEDICAID [employer] Care Teams Floors Buffer Relationship Specialty Start Date End Date Jackson Boothe MD PCP - General Pediatrics 11/09/12
--- OUTSIDE RECORDS SUMMARY | 2024-08-31 17:31 | XMS_ITS | Clinical Summary ---
Author Organization [facility] Address [address] [place] [id number] Care Team Providers Care Charge Master Analyst Name Role Phone Unavailable Primary Care Provider [...] mouth every 8 hours as needed for Nausea/Emesis . Dissolve tablet on top of tongue, then swallow with saliva. 10 Tablet 3 Active cetirizine (ZyrTEC) 10 mg tablet Take 10 mg by mouth daily. 4 Active Active Problems Problem Noted Date Diagnosed Date Biliary colic 03/07/2023 Elevated bilirubin 03/07/2023 Abdominal pain 01/20/2023 Cholelithiasis 01/20/2023 Unconjugated benign bilirubinemia 01/20/2023 Obesity (BMI 35.0-39.9 without comorbidity) 02/2022 Anal fissure 01/19/2023 Nonvenomous bug bite of shou lder or upper arm, infected, right, initial encounter 10/30/2022 Sebaceous cyst 10/19/2022 Encounters Date Type Department Care Team Description 08/20/2024 External Device Data ST[facility] ABSTRACTION Provider, Abstract 08/20/2024 External Device Data [facility] ABSTRACTION Provider, Abstract [...] CDT - 06/23/2024 10:[address] [facility] Emergency Department [address] [place] [address] Froy Hdez MD Rash (Primary Dx) Discharge [...] Care Team (Late st Contact Info) Description 09/04/2024 9:30 AM CDT Office Visit [facility] [place] [address] [place] [address] Trisha Edouard MD [address] [place] [address] Health Maintenance Due Date Last Done Comments CHLAMYDIA SCREENING (ANNUAL) 11-24 YEARS 12/21/2014 HPV VACCINES (1 - Male 3-dos e series) 12/21/2018 INFLUENZA VACCINE (#1) 2024 8, 2016, 12/18/2013, Additional history exists DTAP/TDAP/TD VACCINES (5 - T d or Tdap) 08/27/2033 08/28/2023, 12/26/2013, 12/27/2007, Additional history exists HEPATITIS B VACCINES Completed 06/23/2004, 05/04/2004, 02/23/2004, Additional history exists Insurance RX [employer] ALLEGIANCE OPEN ACCESS Advance Directives For more information, please contact: [phone] * Full Code (Latest Code Status on File) Date Activated Date Inactivated Comments 01/20/2023 8:28 AM 01/20/2023 2:36 PM * Default Full Code - Needs Discussion Date Activated Date Inactivated Comments 01/19/2023 8:30 PM 01/20/2023 8:28 AM * Default Full Code - Needs Discussion Date Activated Date Inactivated Comments 10/19/2022 7:50 AM 10/19/2022 2:57 PM
--- OUTSIDE RECORDS SUMMARY | 2024-08-31 17:31 | XMS_ITS | Clinical Summary ---
Author Organization [facility] Address [address] [place] [address] Care Team Providers Care Debug Technician Name Role Phone No, Physician Primary Care Provider [phone] Allergies Active Allergy Reactions Criticality Noted Date [...] on file Legal Sex Male 3:34 PM UKE OPERATOR Gender Identity Not on file Sexual Orientation Not on file Obstetrics History Last Filed Vital Signs Vital Sign Reading Time Taken Comments Blood Pressure 98/54 02/01/2024 9:15 AM UKE OPERATOR Pulse 91 02/01/2024 9:15 AM UKE OPERATOR Temperature 36.7 C (98.1 F) 01/31/2024 11:21 PM UKE OPERATOR Respiratory Rate 16 02/01/2024 9:15 AM UKE OPERATOR Oxygen Saturation 99% 02/01/2024 9:15 AM UKE OPERATOR Inhaled Oxygen Concentration - - Weight 99.8 kg (220 lb) 01/30/2024 4:22 PM UKE OPERATOR Height 182.9 cm (6') 01/30/2024 4:22 PM UKE OPERATOR Body Mass Index 29.84 01/30/2024 4:22 PM UKE OPERATOR Plan of Treatment Health Maintenance Due Date [...] to complete this topic Insurance SHASHANK ALLEGIANCE [employer] H[employer]PPO Address: [facility] [id number] [facility] [place] [address] [facility] Care Teams Debug Technician Relationship Specialty Start Date End Date No, Physician PCP - General 04/10/22
--- OUTSIDE RECORDS SUMMARY | 2024-08-31 17:31 | XMS_ITS | Referral Summary ---
Author Organization [facility] Address [address] [place] [address] Care Team Providers Care Ip Architect Name Role Phone No, Physician Primary Care Provider [phone] Allergies Active Allergy Reactions Criticality Noted Date [...] on file Legal Sex Male 3:34 PM LABORER/GRADE CHECK Gender Identity Not on file Sexual Orientation Not on file Last Filed Vital Signs Vital Sign Reading Time Taken Comments Blood Pressure 98/54 02/01/2024 9:15 AM LABORER/GRADE CHECK Pulse 91 02/01/2024 9:15 AM LABORER/GRADE CHECK Temperature 36.7 C (98.1 F) 01/31/2024 11:21 PM LABORER/GRADE CHECK Respiratory Rate 16 02/01/2024 9:15 AM LABORER/GRADE CHECK Oxygen Saturation 99% 02/01/2024 9:15 AM LABORER/GRADE CHECK Inhaled Oxygen Concentration - - Weight 99.8 kg (220 lb) 01/30/2024 4:22 PM LABORER/GRADE CHECK Height 182.9 cm (6') 01/30/2024 4:22 PM LABORER/GRADE CHECK Body Mass Index 29.84 01/30/2024 4:22 PM LABORER/GRADE CHECK Plan of Treatment Not on file Insurance [employer] Care Teams Ip Architect Relationship Specialty Start Date End Date No, Physician PCP - General 04/10/22
--- OUTSIDE RECORDS SUMMARY | 2024-08-31 17:31 | XMS_ITS | Clinical Summary ---
Author Organization [facility] Address [address] [place] [address] Phone Care Team Providers Care Consumer Experience Consultant Name Role Phone Provider, None Primary Care Provider Unavailabl e Allergies Active Allergy Reactions Criticality Noted Date Comments Sulfamethoxazole-Trimethop rim Anaphylaxis 10/23/2018 Red eyes, swollen, convulsing Penicillins Anaphylaxis 10/23/2018 Throat swollen, hives Medications No known medications Active Problems Problem Noted Date Diagnosed Date Paronychia of toe Overview (11/18/2014): Left toes Encounters Date Type Department Care Team Description 06/23/2024 7:52 AM CDT - 06/23/2024 8:33 AM CDT Emergency [facility] Emergency [address] [place] [address] Anson Agrawal MD Contact dermatitis, unspecified contact dermatitis type, unspecified trigger Discharge Disposition: Discharged to home or Selfcare 06/23/2024 Travel 06/16/2024 8:35 AM CDT [facility] [address] [place] [address] Leonor Santo APRN, PEGGY Viral upper respiratory tract infection (Primary Dx); [...] Sex Assigned at Male 02/12/2023 12:40 AM SHEARING SHED HAND Legal Sex Male 9:38 PM CDT Gender Identity Male 02/12/2023 12:40 AM SHEARING SHED HAND Sexual Orientation Not on file Last Filed [...] Immunization ( - season) 2023 Influenza Immunization (#1) 2024 11/0 07/2017, 2016, 12/18/2013, Additional history exists DTaP/Tdap/Td Immunization (8 - Td or Tdap) 08/27/2033 08/28/2023, 12/26/2013, 12/27/2007, Additional history exists Respiratory Syncytial Virus (RSV) Immunization (Adult) (1 - 1-dose 75+ series) 12/21/2078 Hepatitis B Immunization Completed 005, 05/04/2004, 02/23/2004, Additional history exists Polio (IPV) [...] 06/16/2024 8:38 AM CDT Leonor Santo APRN, DIGITAL MEDIA COORDINATOR POINT OF CARE TEST ING (MANUAL) Final Result * POC INFLUENZA A AND B BY MOLECULAR (06/16/2024 8:38 AM CDT) INFLUENZA A RNA Negative Negative, Invalid INFLUENZA B RNA Negative Negative, Invalid PROCEDURE CONTROL Valid 06/16/2024 8:38 AM CDT Leonor Santo APRN, DIGITAL MEDIA COORDINATOR POINT OF CARE TEST ING (MANUAL) Final Result * POC GROUP A STREP BY MOLECULAR (06/16/2024 8:36 AM CDT) STREP A DNA Negative Negative, Invalid PROCEDURE CONTROL Valid 06/16/2024 8:36 AM CDT Leonor Santo APRN, DIGITAL MEDIA COORDINATOR POINT OF CARE TEST ING (MANUAL) Final Result from Last 3 Months Insurance CIG Care Teams Consumer Experience Consultant Relationship Specialty Start Date End Date Provider, None [place] PCP - General 01/12/21
[2024-08-31 17:34] VITALS: BP 139/82; PULSE 96; RESP 17; O2SAT 99
--- OUTSIDE RECORDS SUMMARY | 2024-08-31 18:00 | XMS_ITS | Clinical Summary ---
Author Organization [facility] Address [address] [place] [address] Care Team Providers Care Operations Label Clerk Name Role Phone No, Physician Primary Care Provider [phone] Allergies Active Allergy Reactions Criticality Noted Date [...] on file Legal Sex Male 3:34 PM NUT SHELLER Gender Identity Not on file Sexual Orientation Not on file Obstetrics History Last Filed Vital Signs Vital Sign Reading Time Taken Comments Blood Pressure 98/54 02/01/2024 9:15 AM NUT SHELLER Pulse 91 02/01/2024 9:15 AM NUT SHELLER Temperature 36.7 C (98.1 F) 01/31/2024 11:21 PM NUT SHELLER Respiratory Rate 16 02/01/2024 9:15 AM NUT SHELLER Oxygen Saturation 99% 02/01/2024 9:15 AM NUT SHELLER Inhaled Oxygen Concentration - - Weight 99.8 kg (220 lb) 01/30/2024 4:22 PM NUT SHELLER Height 182.9 cm (6') 01/30/2024 4:22 PM NUT SHELLER Body Mass Index 29.84 01/30/2024 4:22 PM NUT SHELLER Plan of Treatment Health Maintenance Due Date [...] to complete this topic Insurance SHASHANK ALLEGIANCE [facility] Care Teams Operations Label Clerk Relationship Specialty Start Date End Date No, Physician PCP - General 04/10/22
--- OUTSIDE RECORDS SUMMARY | 2024-08-31 18:00 | XMS_ITS | Referral Summary ---
Author Organization [facility] Address [address] [place] [address] Care Team Providers Care Tax Compliance Manager Name Role Phone No, Physician Primary Care Provider [phone] Allergies Active Allergy Reactions Criticality Noted Date [...] on file Legal Sex Male 3:34 PM MANAGER DATA WAREHOUSING Gender Identity Not on file Sexual Orientation Not on file Last Filed Vital Signs Vital Sign Reading Time Taken Comments Blood Pressure 98/54 02/01/2024 9:15 AM MANAGER DATA WAREHOUSING Pulse 91 02/01/2024 9:15 AM MANAGER DATA WAREHOUSING Temperature 36.7 C (98.1 F) 01/31/2024 11:21 PM MANAGER DATA WAREHOUSING Respiratory Rate 16 02/01/2024 9:15 AM MANAGER DATA WAREHOUSING Oxygen Saturation 99% 02/01/2024 9:15 AM MANAGER DATA WAREHOUSING Inhaled Oxygen Concentration - - Weight 99.8 kg (220 lb) 01/30/2024 4:22 PM MANAGER DATA WAREHOUSING Height 182.9 cm (6') 01/30/2024 4:22 PM MANAGER DATA WAREHOUSING Body Mass Index 29.84 01/30/2024 4:22 PM MANAGER DATA WAREHOUSING Plan of Treatment Not on file Insurance [employer] Care Teams Tax Compliance Manager Relationship Specialty Start Date End Date No, Physician PCP - General 04/10/22
--- OUTSIDE RECORDS SUMMARY | 2024-08-31 18:00 | XMS_ITS | Clinical Summary ---
Author Organization [facility] Address [address] [place] [address] Phone Care Team Providers Care Agricultural Purchasing Agent Name Role Phone Provider, None Primary [...] CDT - 06/23/2024 8:33 AM CDT [facility] [place] [address] Anson Agrawal MD Contact dermatitis, unspecified contact dermatitis type, unspecified trigger Discharge Disposition: Discharged to home or Selfcare 06/23/2024 Travel 06/16/2024 8:35 AM CDT [facility] [address] [place] [address] Leonor Santo APRN, PEGGY Viral [...] Sex Assigned at Male 02/12/2023 12:40 AM COMBAT CONTROL Legal Sex Male 9:38 PM CDT Gender Identity Male 02/12/2023 12:40 AM COMBAT CONTROL Sexual Orientation Not on file Last Filed [...] 06/16/2024 8:38 AM CDT Leonor Santo APRN, PAPER BAGS SEWING MACHINE OPERATOR POINT OF CARE TEST ING (MANUAL) Final Result * POC INFLUENZA A AND B BY MOLECULAR (06/16/2024 8:38 AM CDT) INFLUENZA A RNA Negative Negative, Invalid INFLUENZA B RNA Negative Negative, Invalid PROCEDURE CONTROL Valid 06/16/2024 8:38 AM CDT Leonor Santo APRN, PAPER BAGS SEWING MACHINE OPERATOR POINT OF CARE TEST ING (MANUAL) Final Result * POC GROUP A STREP BY MOLECULAR (06/16/2024 8:36 AM CDT) STREP A DNA Negative Negative, Invalid PROCEDURE CONTROL Valid 06/16/2024 8:36 AM CDT Leonor Santo APRN, PAPER BAGS SEWING MACHINE OPERATOR POINT OF CARE TEST ING (MANUAL) Final Result from Last 3 Months Insurance CIG Care Teams Agricultural Purchasing Agent Relationship Specialty Start Date End Date Provider, None [place] PCP - General 01/12/21
--- OUTSIDE RECORDS SUMMARY | 2024-08-31 18:00 | XMS_ITS | Clinical Summary ---
Author Organization [facility] [email or web address] [place] Address [address] [place] [address] Care Team Providers Care Supervisor Modern Languages Name Role Phone Unavailable Primary Care Provider [...] CDT - 06/23/2024 10:31 AM CDT Emergency [facility] Emergency Department [address] [place] [address] Froy Hdez MD Rash (Primary [...] Description 09/04/2024 9:30 AM CDT Office Visit [facility] at [facility] [employer] [place] [address] [place] [address] Trisha Edouard MD [address] [place] [address] Health Maintenance Due Date Last [...] Advance Directives For more information, please contact: [phone] * Full Code (Latest Code Status on File) Date Activated Date Inactivated Comments 01/20/2023 8:28 AM 01/20/2023 2:36 PM * Default Full Code - Needs Discussion Date Activated Date Inactivated Comments 01/19/2023 8:30 PM 01/20/2023 8:28 AM * Default Full Code - Needs Discussion Date Activated Date Inactivated Comments 10/19/2022 7:50 AM 10/19/2022 2:57 PM
--- OUTSIDE RECORDS SUMMARY | 2024-08-31 18:00 | XMS_ITS | Clinical Summary ---
Author Organization [facility] Address [address] [place] [address] Care Team Providers Care Legal Clerk Name Role Phone Jackson Boothe MD Primary Care Provider [phone] Source Comments [facility],non-owned Affiliates and Associated Physician Practices is amultiple site organization consisting of ambulatory clinics and hospital sitesin [place], [place], [place] and [place]. This disclosure is being madepursuant to the Care Everywhere program and may not contain all information available regarding this patient. 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 MEDICAID [facility] Care Teams Legal Clerk Relationship Specialty Start Date End Date Jackson Boothe MD PCP - General Pediatrics 11/09/12
[2024-08-31 19:27] LABS: Hematocrit 41.3 % (42.0-52.0); Hemoglobin 14.8 g/dL (14.0-18.0); Immature Granulocyte Percent A 0.2 % (0-0.5); Lymphocytes Absolute Auto 2.46 K/mm3 (0.9-3.2); Mean Corpuscular HGB Conc 35.8 g/dl (32-36); Mean Corpuscular Hemoglobin 30.0 pg (26-34); Mean Corpuscular Volume 83.8 fl (80-100); Nucleated Red Blood Cells Absolute Auto 0.000 K/mm3 (0.0-0.012); Nucleated Red Blood Cells Perc 0.0 % (0.0-0.2); Platelet Count Result 216 k/mm3 (150-375); Red Blood Count 4.93 M/mm3 (4.6-6.20); White Blood Count 9.9 K/mm3 (4.5-10.0)
[2024-08-31 19:31] VITALS: BP 118/68; PULSE 74; RESP 17; O2SAT 99
--- NOTE | 2024-08-31 19:32 | ED_ITS ---
HPI - General Adult General Chief complaint: Abdominal Pain Stated complaint: i'm defecating blood Time Seen by Provider: 08/31/24 17:32 History of Present Illness HPI narrative: This is a 18-year-old male presenting with a bloody bowel movement. Patient had a cholecystectomy performed 2 weeks ago. He has been recovering well since then. Earlier today he had a bowel movement and noticed there was some blood mixed in the stool and on his toilet paper. Patient does have some achy pain on the right side of his abdomen. He does not have any nausea vomiting or fevers. He has followed up with his cholecystectomy with surgeon has been doing well overall. Patient has a history of rectal fissures. He denies any rectal pain. No chest pain shortness of breath weakness or dizziness. Related Data Home Medications ?Medication ?Instructions ?Recorded ?Confirmed ?Last Taken ?Type ondansetron HCl 4 mg tablet 4 mg PO Q6H PRN nausea and vomiting 07/28/24 08/27/24 07/28/24 History Allergies Allergy/AdvReac Type Severity Reaction Status Date / Time amoxicillin Allergy Severe Throat Verified 08/27/24 14:16 swelling and rash sulfamethoxazole Allergy Unknown convulsions Verified 08/27/24 14:16 trimethoprim Allergy Unknown convulsions Verified 08/27/24 14:16 [facility] Past Medical History Medical History Eczema Acne Surgical History Surgical History Hx of cholecystectomy 08/12/2024 Robotic assisted cholecystectomy No history of previous surgery Family History Family History Mother Diabetes mellitus CHF (congestive heart failure) Hypertension COPD (chronic obstructive pulmonary disease) Breast cancer Other Cirrhosis of liver Degenerative disc disease Social History Social History Social History: Patient recently moved back in with his mother. He works in [employer]. He drinks alcohol about once a month and he can drink anywhere from 2-3 drinks up to a pint when he does drink. He has not drink alcohol in 2 or 3 weeks. He smokes cigarettes on the weekends and the the rest of time he vapes. He reports that he vapes almost constantly. He started vaping at age 16. He denies illicit substance use. Code status: Full code Surrogate decision maker: Mother Smoking status: Current every day smoker Tobacco type: e-cigarettes/vaping Alcohol intake: current Drinks per week: 1 Substance use: current Substance use type: marijuana Other substance usage details: daily Do You Feel Safe in your Home?: Yes Lack of Transportation: No Lack of Food: Never True Current Housing: I Have Housing Concerned About Future Housing: No Difficulty Paying Gas/Electric Bills: No Difficulty Paying for Meds: No Currently Unemployed: No Education: High School Diploma/GED Difficulty w/ Childcare or Family Care: No Living arrangements: with family Occupation/Education: student Gender identity (if verbalized by the patient): Male Spiritual care concerns: No Exam 2 Narrative: APPEARANCE: No apparent distress. Head: atraumatic. EYES: EOMI, NOSE: Atraumatic NECK: Trachea midline RESPIRATORY: No increased rate of breathing CARDIOVASCULAR: RRR, ABDOMINAL: Non-distended soft nontender no guarding rebound Rectal: No external fissures or hemorrhoids. No blood on digital rectal exam. Hemoccult negative. MUSCULOSKELETAl: No obvious deformities NEURO: Alert. Moving 4/4 extremities SKIN:: Warm, dry. Normal color PSYCHIATRIC: Normal affect Course Vital Signs Vital signs: Vital Signs Pulse Rate 96 08/31/24 17:34 Respiratory Rate 08/31/24 17:34 Blood Pressure 139/82 08/31/24 17:34 Pulse Oximetry 99 08/31/24 17:34 Oxygen Delivery Room Air 08/31/24 17:34 Pulse Rate 74 08/31/24 19:31 Respiratory Rate 17 08/31/24 19:31 Blood Pressure 118/68 08/31/24 19:31 Pulse Oximetry 99 08/31/24 19:31 Oxygen Delivery Room Air 08/31/24 17:34 Medical Decision Making MDM Narrative Medical decision making narrative: -Course: 26-year-old male presenting with right-sided abdominal discomfort and episode of rectal bleeding. Hemoglobin normal. No blood on digital rectal exam. CT abdomen pelvis were due to recent surgery. Patient can likely be discharged safely with GI follow-up. Sign offending physician pending completion of the workup -DDX includes but is not limited to: Hemorrhoids, rectal fissure, diverticular bleed, AVM, ulcerative colitis or inflammatory bowel disease -Co-morbidities complicating care: Recent cholecystectomy Vital Signs Vital Signs: Vital Signs Pulse Rate 96 08/31/24 17:34 Respiratory Rate 17 08/31/24 17:34 Blood Pressure 139/82 08/31/24 17:34 Pulse Oximetry 99 08/31/24 17:34 Oxygen Delivery Room Air 08/31/24 17:34 Pulse Rate 74 08/31/24 19:31 Respiratory Rate 17 08/31/24 19:31 Blood Pressure 118/68 08/31/24 19:31 Pulse Oximetry 99 08/31/24 19:31 Oxygen Delivery Room Air 08/31/24 17:34 Lab Data 08/31/24 19:21 08/31/24 19:21 Labs: Lab Results 08/31/24 08/31/24 Range/Units 19:21 19:21 WBC 9.9 (4.5-10.0) K/mm3 RBC 4.93 (4.6-6.20) M/mm3 Hgb 14.8 (14.0-18.0) g/dL Hct 41.3 L (42.0-52.0) % MCV 83.8 (80-100) fl MCH 30.0 (26-34) pg MCHC 35.8 (32-36) g/dl RDW 12.7 (11.5-14.5) % Plt Count 216 (150-375) k/mm3 MPV 7.9 (7.4-10.4) fl Immature Gran % (Auto) 0.2 (0-0.5) % Neut % (Auto) 65.2 (45.5-73.1) % Lymph % (Auto) 25.0 (18.3-44.2) % Canyon % (Auto) 8.3 (2.6-8.5) % Eos % (Auto) 0.9 (0-4.4) % Baso % (Auto) 0.4 (0.2-1.2) % Lymph # (Auto) 2.46 (0.9-3.2) K/mm3 Canyon # (Auto) 0.8 H (0.1-0.6) K/mm3 Eos # (Auto) 0.1 (0-0.3) K/mm3 Baso # (Auto) 0.0 (0.0-0.1) K/mm3 Abs Immat Gran (auto) 0.02 (0.00-0.031) K/mm3 Absolute Neuts (auto) 6.4 (1.3-6.7) K/mm3 Absolute Nucleated RBC 0.000 (0.0-0.012) K/mm3 Nucleated RBC % 0.0 (0.0-0.2) % Sodium Pending Potassium Pending Chloride Pending Carbon Dioxide Pending Anion Gap Pending BUN Pending Creatinine Pending Estim Creat Clear Calc Pending Estimated GFR Pending Glucose Pending Calcium Pending Total Bilirubin Pending AST Pending ALT Pending Alkaline Phosphatase Pending Total Protein Pending Albumin Pending Lipase Pending Cancelled Discharge Plan Discharge Clinical Impression: Bright red rectal bleeding Patient Disposition: Home Condition: Stable Instructions: Antibiotic Form, Rectal Bleeding (ED) Additional Instructions: He was seen emergency department for rectal bleeding. Your workup here was reassuring. I would like you to follow-up with the GI physician listed below in the next 1 week. If you develop any new symptoms such as severe abdominal pain, persistent bright red rectal bleeding or any new or worsening symptoms please return to the ED for re-evaluation. Patient Language: Slovenian Prescriptions: No Action ondansetron HCl 4 mg tablet 4 mg PO Q6H PRN (Reason: nausea and vomiting) Follow-up/Referrals: PHYSICIAN,SALES AND MARKETING INTERN [Primary Care Provider] - Bill Ashton MD [Physician] - 1 Week
[2024-08-31 19:37] LABS: Alanine Aminotransferase 32 U/L (6-50); Albumin Level 4.1 g/dL (3.5-5.1); Alkaline Phosphatase 38 U/L (38-126); Anion Gap 8 mmol/L (4-12); Aspartate Amino Transferase 24 U/L (17-59); Bilirubin,Total 3.2 mg/dL (0.2-1.3); Blood Urea Nitrogen 11 mg/dL (9-20); Calcium 9.2 mg/dL (8.4-10.2); Carbon Dioxide 26 mmol/L (22-30); Chloride 105 mmol/L (98-107); Estimated CRCL calculation 146 ml/min; Estimated Glomerular Filt Rate > 60; Glucose 92 mg/dL (65-110); Lipase 101 U/L (23-300); Potassium 2.9 mmol/L (3.4-5.0); Sodium 139 mmol/L (137-145); Total Protein 7.1 g/dL (6.3-8.2)
[2024-08-31] MEDS: POTASSIUM CHLORIDE 20 MEQ PACKET (FOR LIQUID) 40 MEQ PO (20:26)
[2024-08-31 20:33] LABS: Magnesium 2.0 mg/dL (1.6-2.3)
== END 2024-08-31 21:01 | disposition home or self-care (01) ==
PROVIDERS: Emergency Medicine; Emergency Provider Emergency Medicine
DX: K62.5 Hemorrhage of anus and rectum (principal); F17.210 Nicotine dependence, cigarettes, uncomplicated; F17.290 Nicotine dependence, other tobacco product, uncomplicated; K59.00 Constipation, unspecified; R16.0 Hepatomegaly, not elsewhere classified; Z90.49 Acquired absence of other specified parts of digestive tract
CPT/HCPCS: 36415; 74177; 80053; 83690; 83735; 85025; 99284; A9270; Q9967